=== PATIENT | male | born 1960 | race Asian ===

== ENCOUNTER → 2018-01-30 08:23 | Outpatient (CLI) | payer BC, SELFPAY ==
[2018-01-30 10:24] LABS: Vitamin D,25 Hydroxy 19.5 ng/mL (29.95-100.01)
[2018-01-30 10:27] LABS: Cholesterol 227 mg/dL (200); High Density Lipoprotein 45 mg/dL; Thyroid Stim Hormone (TSH) 2.29 uIU/mL (0.358-3.74); Triglycerides 149 mg/dL; Very Low Density Lipoprotein 30 mg/dL (5-40)
== END ==
PROVIDERS: Family Provider Family Medicine; PCP Family Medicine; Visit Provider Family Medicine
DX: Z00.00 Encounter for general adult medical examination without abnormal findings (principal); M51.37 Other intervertebral disc degeneration, lumbosacral region; E55.9 Vitamin D deficiency, unspecified
CPT/HCPCS: 36415; 80061; 82306; 84443

== ENCOUNTER 2018-03-31 17:00 | Outpatient (RCR) | payer BC, SELFPAY ==
--- NOTE | 2018-02-05 14:07 | HP.PTEVAL_ITS ---
Patient's Visit Information MICHAELA CHAPMAN is a 57 year old M referred to Physical Therapy by Paul Ward with a diagnosis of DDD L/S, snapping hip. Date of Evaluation: 02/05/18 Physical Therapist: Paul Oh, BARBARAT, OC - Visit Plan Frequency: 1x/Week Duration: 4-6 Weeks Plan: weekly x 4-6 for ITB stretch, rollout, hip flexor stretch adn monitor tolerance to Angela based LB ext ex vs. neutral spine. Progress HEP each week and schedule as we go. - Subjective Subjective: L hip pain and down leg. Painful if sits too long. Also feels a little numb. Daily for years adn worsening. Starts in L butt. Used to have low back pain but not lately. Rated at 0-4/10. Feels Ok with tennis adn works out 2x/week with tennis. Feels OK after tennis. 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 Feels like popping in hip when someone lifts my leg. 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 uses this because of leg pain. Been using that for 5 years, standing can also give him pain. Basic ADLS are OK. Hobbies: tennis. - Pain L hip and leg Pain Intensity (Out of 10): 0 Pain Intensity Range: 0, 4 - Objective Pt walks without deficits today and transfers I. LB AROM is stiff in ext and painful with PPU at end range transiently, SB and flexion are full and painfree today. Tender to PA palpation of Lower L/S segments but does not reproduce L lateral leg or butt symptoms. hip AROM and PROm WFL and no snapping today noted. Hip and knee strength at 4+/5 without pain. reflexes 1/3 patella and achilles. Sensation WNL to gross light touch. ITB are maximally tight B, hip flexors min tight. HS and quads are WNL. Repeated ext seems to improve lumbar ext and NE on pain today which is nonexistent. - Goals Goal 1:: Wake up in am without notable back/butt pain. Goal Time Frame: 4-6 Weeks Goal 2:: Patient report a 75% decrease in pain levels of L leg and hip with sitting. Goal Time Frame: 4-6 Weeks Goal 3:: Pt be I in appropriate intermediate designer ex to minimize future problems. Goal Time Frame: 4-6 Weeks - Rehabilitation Potential Physical Therapy Diagnosis: DDD, discal pathology and tight ITB contributing to chronic pain. Rehabilitation Potential: Fair - Anticipated Interventions Patient/Client Instruction: Educate patient on: Condition, Plan of Care For the Purpose of:: To decrease pain Therapeutic Exercise to Include: Flexibilty training, Angela Exercises For the Purpose of:: To decrease pain, To increase ROM, To improve ability of physical actions for home/community/work/leisure Manual Therapy Techniques to Include: Soft tissue mobilization For the Purpose of:: To decrease pain, To increase ROM Thank you for the opportunity to evaluate your patient. For Medicare and Medicare HMO plans, please review the plan of care and approve it. It will need to be FAXED BACK to us at [phone] for Medicare purposes. Please let me know if there are questions or concerns regarding this plan of care. Physician Signature: Date:
--- NOTE | 2018-03-31 17:22 | HP.PTREVAL ---
Paul Ward, It has been my pleasure to treat MICHAELA CHAPMAN over the last 7 visits for DDD L/S, snapping hip. Please see the progress note below for an update on the physical therapy plan of care! Subjective: Not bad. coming back on plane was worse 12/09 and needed ibuprofen for L LB/hip. Was just sitting too much. Hip and LB was good other than that. Did not stretch much while gone. Wants to try adn stretch on own for 3 weeks and f/u one more time. No f/u with doctor scheduled. Objective/Function: Pt has gotten away from stretches and wants to get back to them at home before D/C to ensure doing well. No pain or tenderness today, still very tight in ITB, HS, hip flexors. Plan Plan: f/u three weeks as needed to check progress and D/C or request more visits if needed. Goals Goal 1:: Wake up in am without notable back/butt pain. Goal Time Frame: 4-6 Weeks Goal 2:: Patient report a 75% decrease in pain levels of L leg and hip with sitting. Goal Time Frame: 4-6 Weeks Goal 3:: Pt be I in appropriate alf ex to minimize future problems. Goal Time Frame: 4-6 Weeks Anticipated Interventions Patient/Client Instruction: Educate patient on: Condition, Plan of Care For the Purpose of:: To decrease pain Therapeutic Exercise to Include: Flexibilty training, Angela Exercises For the Purpose of:: To decrease pain, To increase ROM, To improve ability of physical actions for home/community/work/leisure Manual Therapy Techniques to Include: Soft tissue mobilization For the Purpose of:: To decrease pain, To increase ROM Please do not hesitate to contact me at [phone] by phone or if you have questions or concerns regarding this new plan of care! Sincerely, Paul Oh, DPT, OC
--- NOTE | 2018-06-12 13:31 | HP.PT.NRP ---
HP - Discharge Summary (1) - Patient Information MICHAELA CHAPMAN was seen in my office for initial evaluation on 02/05/18. The following Plan of Care was established for this patient: Initial Frequency: 1x/Week Initial Duration: 4-6 Weeks - Anticipated Interventions Patient/Client Instruction: Educate patient on: Condition, Plan of Care For the Purpose of:: To decrease pain Therapeutic Exercise to Include: Flexibilty training, Angela Exercises For the Purpose of:: To decrease pain, To increase ROM, To improve ability of physical actions for home/community/work/leisure Manual Therapy Techniques to Include: Soft tissue mobilization For the Purpose of:: To decrease pain, To increase ROM This patient was last seen in our office 03/31/18. Pertinent comments regarding their Physical therapy will appear below: Pt seen 7 visits POC and was doing well. He was to f/u three weeks later but did not schedule or attend that visit. iw ill discontinue at this time due to nonattendance. At this point I will be discontinuing this patient from physical therapy. I would be happy to see this patient again in the future if found appropriate by the physician. Thank you! Paul Oh, DPT, OCS, CSCS
== END 2018-03-31 19:00 | disposition home or self-care (01) ==
LOC: PT 17:00
PROVIDERS: Family Provider Family Medicine; PCP Family Medicine; Visit Provider Family Medicine
DX: M47.9 Spondylosis, unspecified (principal); M51.36 Other intervertebral disc degeneration, lumbar region; R29.4 Clicking hip
CPT/HCPCS: 97110; 97140; 97162; 97530

== ENCOUNTER 2018-08-18 18:00 | Outpatient (RCR) | payer BC, SELFPAY ==
--- NOTE | 2018-07-20 10:47 | HP.PTEVAL ---
Patient's Visit Information MICHAELA CHAPMAN is a 58 year old M referred to Physical Therapy by Paul Ward MD with a diagnosis of cervicalgia. Date of Evaluation: 07/20/18 Physical Therapist: Paul Oh, DPT, OCS, CSCS - Visit Plan Frequency: 2x /Week Duration: 4-6 Weeks Plan: 2x/week for 4 weeks for. 1. Progression of retraction forces c/s. 2. postural and c/s strength. 3. may do Es adn Mh if not improving adn c/s traction manual - Subjective Findings: Woke up with neck pain and stiffness, was good the night before. This is not improving. Pain is L c/s and scapula area. Has tried massage and stretching L UT which help a little bit. Pain is deep constant. Worse in morning, Worse with sitting. 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 Sleeping is OK on his back. Wakes up stiff. Has not missed work or avoided activity but is very uncomfortable. Some days very uncomfortable and doesn't feel liek doing much. - Pain L neck pain Pain Intensity (Out of 10): 3 Pain Intensity Range: 1, 5 - Objective Posture is forward head and slightly elevated scap. c/s AROM ext 43, B rotation 60 L and 50 R no pain, retraction gives wince, flexion is good. reflexes bi and triceps 2/3. Sensation UE WNL to gross light touch. Strength UE 4+ without myotomal abnormalities. No tenderness in soft tissue adn no pain with any isometric neck contractions in neutral. + c/s compression. Repeated motion testing: protrusion, NE. retraction, NE pain, feels good Improved ext to 60 adn rotations to 65. - Goals Goal 1:: Full c/s AROM without pain Goal Time Frame: 2-4 Weeks Goal 2:: Patient feel 90% improved overall with pain no greater than 1/10 adn intermittent. Goal Time Frame: 2-4 Weeks Goal 3:: I approp management of condition Goal Time Frame: 2-4 Weeks - Rehabilitation Potential Physical Therapy Diagnosis: cervicalgia likely discal in nature Rehabilitation Potential: Fair - Anticipated Interventions Patient/Client Instruction: Educate patient on: Condition, Plan of Care For the Purpose of:: To decrease pain, To increase ROM, To increase tolerance to activity/condition/position Therapeutic Exercise to Include: Strength training, Passive ROM, Active ROM For the Purpose of:: To decrease pain, To increase ROM, To increase tolerance to activity/condition/position, To improve ability of physical actions for home/community/work/leisure Manual Therapy Techniques to Include: Mobilization, Passive ROM Comment: traction For the Purpose of:: To decrease pain TENS: Yes Thermo therapy (hot pack): Yes Intermittent cervical traction: Yes For the Purpose of:: To decrease pain, To increase ROM Thank you for the opportunity to evaluate your patient. For Medicare and Medicare HMO plans, please review the plan of care and approve it. It will need to be FAXED BACK to us at [phone] for Medicare purposes. For Medicare only, by signing this I certify the plan of care. Please let me know if there are questions or concerns regarding this plan of care. Physician Signature: Date:
--- NOTE | 2018-08-06 17:46 | HP.PTREVAL ---
Paul Ward MD, It has been my pleasure to treat MICHAELA CHAPMAN over the last 6 visits for cervicalgia. Please see the progress note below for an update on the physical therapy plan of care! Subjective: Slightly better. Pain this week has been 4/10 intermittently but mostly constant. Better in the morning. Worse as day goes on. No ibuprofen today. Took it the rest of the week. HEP is going well. Treatment has gotten rid of pain today. Not sure what other options are. Objective/Function: 80 extension and 62 B rotation. No tenderness in neck area. Good 4/5 strength in UE, still forward head posture adn tends to protract with UE resisted movements. PROGRESS IS SLOW AND PT TO CALL DOCTOR AND GET ON SCHEUDLE FOR OTHER OPTIONS WHILE WE STRENGTHEN TO FINISH OUT POC. Plan Plan: 2x/week for 2 weeks for. Postural strength and cervical strength. Moniotr c/s ROM. May do manual if tender or stiff to neck PROM/STM Goals Goal 1:: Full c/s AROM without pain Goal Time Frame: 2-4 Weeks Goal Progress: Progressing Goal 2:: Patient feel 90% improved overall with pain no greater than 1/10 adn intermittent. Goal Time Frame: 2-4 Weeks Goal Progress: Progressing Goal 3:: I approp management of condition Goal Time Frame: 2-4 Weeks Goal Progress: Goal Met Anticipated Interventions Patient/Client Instruction: Educate patient on: Condition, Plan of Care For the Purpose of:: To decrease pain, To increase ROM, To increase tolerance to activity/condition/position Therapeutic Exercise to Include: Strength training, Passive ROM, Active ROM For the Purpose of:: To decrease pain, To increase ROM, To increase tolerance to activity/condition/position, To improve ability of physical actions for home/community/work/leisure Manual Therapy Techniques to Include: Mobilization, Passive ROM Comment: traction For the Purpose of:: To decrease pain TENS: Yes Thermo therapy (hot pack): Yes Intermittent cervical traction: Yes For the Purpose of:: To decrease pain, To increase ROM Please do not hesitate to contact me at [phone] by phone or if you have questions or concerns regarding this new plan of care! Sincerely, Paul Oh, DPT, OCS, CSCS
--- NOTE | 2018-08-18 18:29 | HP.PTDCSUM ---
HP - PT D/C Summary It has been my pleasure to treat MICHAELA CHAPMAN under orders from Paul Ward MD, for the diagnosis of cervicalgia for a total of 8 visit(s). Discharge Date: 08/18/18 Please see the following information for a summary of their discharge status. - Subjective Subjective: Up and down pain. For no apparent reason. Will be good one day then 5/10 L c/s. Is getting some tingling down L arm. - Pain L neck pain Pain Intensity (Out of 10): 4 - Overall Improvement % Improvement: 20 - Objective Objective/Function: c/s retraction causes L neck pain trasniently. Rubs L shoulder after doing these. c/s flexion: feels better in shoulder and neck. Full UE AROM without pain. c/s AROM ext to 65 but avoids lower c/s ext, rotations to 60 degrees without increased pain. OVERALL PATIENT IS NOT IMPROVING EXPECTED . HIS SYMPTOMS ARE UP AND DOWN WITHOUT OBVIOUS PATTERN. CLINICALLY COULD BE STENOSIS OR DIS BUT SOFT TISSUE WORK IS NOT HELPING HIM. - Goals Goal 1:: Full c/s AROM without pain Goal Progress: Not Progressing Goal 2:: Patient feel 90% improved overall with pain no greater than 1/10 adn intermittent. Goal Progress: Not Progressing Goal 3:: I approp management of condition Goal Progress: Not Progressing - Plan Plan: Pt to schedule with doctor for further medical care or delineation of problem. Would be happy to see him again if found approp by physician. Would likely need strength posture . - D/C Information Discharge Comments: Pt not progressing satisfactorily and lazcano chedule with doctor regarding next medical step. If there are questions or concerns regarding this patient's physical therapy, please feel free to call me at [phone]. Thank you for the referral of this patient. Sincerely, Paul Oh, DPT, OCS, CSCS
== END 2018-08-18 19:00 | disposition home or self-care (01) ==
LOC: PT 18:00
PROVIDERS: Family Provider Family Medicine; PCP Family Medicine; Referring Provider Family Medicine; Visit Provider Family Medicine
DX: M54.2 Cervicalgia (principal)
CPT/HCPCS: 97012; 97035; 97110; 97140; 97162; 97530

== ENCOUNTER → 2018-08-21 16:59 | Outpatient (CLI) | payer BC, SELFPAY ==
--- NOTE | 2018-08-21 17:07 | RAD_ITS ---
STUDY: X-RAY - CERVICAL SPINE REASON FOR EXAM: Male, 58 years old. PAIN TO NECK AND ARMS, NKI TECHNIQUE: 5 view(s) of the lumbar spine were obtained. COMPARISON: None FINDINGS: Normal cervical lordosis. There is multi-level endplate spondylosis. There is multi-level degenerative disc disease with multilevel disc space narrowing. The soft tissue structures are unremarkable. RAD/Cerv Spine 4 or 5 Views IMPRESSION: Mild degenerative changes of the spine. Electronically Signed: Pelon Katz MD at 9:15 EDT Tel , Service support ,
== END ==
PROVIDERS: Family Provider Family Medicine; PCP Family Medicine; Referring Provider Family Medicine; Visit Provider Family Medicine
DX: M54.2 Cervicalgia (principal)
CPT/HCPCS: 72050

== ENCOUNTER → 2018-08-28 06:35 | Outpatient (CLI) | payer BC, SELFPAY ==
--- NOTE | 2018-08-28 06:49 | MRI_ITS ---
STUDY: MRI CERVICAL SPINE WITHOUT CONTRAST REASON FOR EXAM: Male, 58 years old. Neck pain radiating to left shoulder. TECHNIQUE: Standardized fat and water weighted pulse sequences were obtained in the sagittal and axial planes. COMPARISON: X-ray dated August 21, 2018. FINDINGS: Normal foramen magnum and brainstem-cervical cord junction. Normal craniovertebral junction. Normal anterior atlantoaxial articulation. Normal odontoid process. Cervical straightening. No acute fracture, dislocation or osseous destruction. C2-3: Normal endplates. Normal disc height, signal and morphology. Normal central canal and intervertebral neural foramina. C3-4: Normal endplates. Normal disc height, signal and morphology. Moderate left neural foraminal narrowing. C4-5: Normal endplates. Normal disc height, signal and morphology. Mild left neural femoral narrowing. C5-6: Minimal endplate spondylosis. Disc bulge/osteophyte complex, asymmetric to the right, with mild central canal narrowing. Moderate/severe bilateral neural foraminal narrowing, left greater than right. C6-7: Normal endplates. Shallow disc bulge without central canal narrowing. Mild bilateral neural foraminal narrowing. C7-T1: Normal endplates. Normal disc height, signal and morphology. Normal central canal and intervertebral neural foramina. No abnormal cervical cord signal. Vascular flow voids maintained. Normal soft tissue structures. MRI/Spine Cervical (Routine) IMPRESSION: No abnormal cord signal C5-6, C6-7 intervertebral disc disease with mild central canal narrowing at C5-6 Multilevel neural foraminal narrowing, left greater than right, most significant at C5-6 C5-6 minimal endplate spondylosis Cervical straightening Electronically Signed: Paul James DO at 19:36 EDT Tel , Service support ,
== END ==
PROVIDERS: Family Provider Family Medicine; PCP Family Medicine; Referring Provider Family Medicine; Visit Provider Family Medicine
DX: M50.30 Other cervical disc degeneration, unspecified cervical region (principal); M54.2 Cervicalgia; M25.512 Pain in left shoulder; M79.609 Pain in unspecified limb
CPT/HCPCS: 72141

== ENCOUNTER 2018-10-08 17:00 | Outpatient (RCR) | payer BC, SELFPAY ==
--- NOTE | 2018-09-10 17:50 | HP.PTEVAL_ITS ---
Patient's Visit Information MICHAELA CHAPMAN is a 58 year old M referred to Physical Therapy by Vic Phoenix MD with a diagnosis of DDD c/s. Date of Evaluation: 09/10/18 Physical Therapist: Paul Oh DPT, OCS, CSCS - Visit Plan Frequency: 2-3x /Week Duration: 2-4 Weeks Plan: 2-3x/week for 2-4 weeks for. 1. monitor c/s flexion effects on symptoms and non damagin ROM to c/s. 2. c/s ICT. 3. postural and cervical strength including c/s isometrics to HEP - Subjective Findings: This is a reevaluation of a previously discharged returning patient after MRI results. Had MRI for L sided necka nd scap pain. Pain is 4/10 daily intemrittently. No arm symptoms but does get pain in upper arm shoulder at times. He recently had therapy and was sent back to doctor for this MRI and next step. Activities don't make it worse but he is stiff nearly every morning. Stretches help and he continues those, has stopped retraction and strength. - Pain L UT Pain Intensity (Out of 10): 2 Pain Intensity Range: 0, 5 - Objective 63 B rotation c/s withotu pain, 15 B sB without pain, ext is 45 without pain, No tenderness to touch in B UT or shoulder. reflexes 2/3 bi and tri. Sensation WNL B UE. Strength 4+/5 UE without myotomal abnormalities. repested c/s flexion seems to increase motion and improve retraction with less pain. - Goals Goal 1:: Full C/S arom without pain Goal Time Frame: 2-4 Weeks Goal 2:: Patient feel pain 90% decreased adn manageable Goal Time Frame: 2-4 Weeks Goal 3:: Sleep without waking in morning with pain Goal Time Frame: 2-4 Weeks - Rehabilitation Potential Physical Therapy Diagnosis: C/S DDD Rehabilitation Potential: Questionable - Anticipated Interventions Patient/Client Instruction: Educate patient on: Condition, Plan of Care For the Purpose of:: To decrease pain, To increase ROM, To increase tolerance to activity/condition/position Therapeutic Exercise to Include: Strength training, Postural training, Flexibilty training, Passive ROM, Active ROM For the Purpose of:: To decrease pain, To increase ROM, To increase tolerance to activity/condition/position, To improve ability of physical actions for home/community/work/leisure Intermittent cervical traction: Yes For the Purpose of:: To decrease pain Thank you for the opportunity to evaluate your patient. For Medicare and Medicare HMO plans, please review the plan of care and approve it. It will need to be FAXED BACK to us at [phone] for Medicare purposes. For Medicare only, by signing this I certify the plan of care. Please let me know if there are questions or concerns regarding this plan of care. Physician Signature: Date:
--- NOTE | 2018-10-08 17:26 | HP.PTDCSUM ---
HP - PT D/C Summary It has been my pleasure to treat MICHAELA CHAPMAN under orders from Vic Phoenix MD, for the diagnosis of DDD c/s for a total of 5 visit(s). Discharge Date: 10/08/18 Please see the following information for a summary of their discharge status. - Subjective Subjective: Was sick earier in the week. Neck is more or less good. Not much pain lately. 90% better, gets tightness on L side. Stretching seems to help the most. Traction has helped. Buttock pain is coming back and keeping him up but neck is good. - Pain L UT Pain Intensity (Out of 10): 2 - Overall Improvement % Improvement: 90 - Objective Objective/Function: 75 B rotation c/s without pain, 70 ext . Full UE AROM all without pain and 4+/5 strength. DOING VERY WELL SINCE STARTING C/S FLEXION REPEATED. - Goals Goal 1:: Full C/S arom without pain Goal Progress: Goal Met Goal 2:: Patient feel pain 90% decreased adn manageable Goal Progress: Goal Met Goal 3:: Sleep without waking in morning with pain Goal Progress: MET WITH NECK. - Plan Plan: D/C - D/C Information Discharge Comments: dOING WELL ADN NO F/U WITH DOCTOR. wILL CONTINUE VIA HEP. If there are questions or concerns regarding this patient's physical therapy, please feel free to call me at [phone]. Thank you for the referral of this patient. Sincerely, Paul Oh, DPT, OCS, CSCS
== END 2018-10-08 19:00 | disposition home or self-care (01) ==
LOC: PT 17:00
PROVIDERS: Family Provider Family Medicine; PCP Family Medicine; Referring Provider Family Medicine; Visit Provider Family Medicine
DX: M51.37 Other intervertebral disc degeneration, lumbosacral region (principal); M50.30 Other cervical disc degeneration, unspecified cervical region
CPT/HCPCS: 97012; 97110; 97164; 97530

== ENCOUNTER → 2019-01-29 09:59 | Outpatient (CLI) | payer BC, SELFPAY ==
[2019-01-29 13:01] LABS: Vitamin D,25 Hydroxy 30.2 ng/mL (29.95-100.01)
[2019-01-29 13:06] LABS: Anion Gap 6 (5-15); BUN 17 mg/dL (7-18); BUN/Creat Ratio 12.5 RATIO (10-20); Calcium,Total 8.9 mg/dL (8.5-10.1); Chloride 107 mmol/L (98-107); Cholesterol 233 mg/dL (200); Creatinine, Serum 1.36 mg/dL (0.70-1.30); EST Glomerular Filtration Rate 58 mL/min (>60); Est Glom Filt Rate - Afr Amer 70 mL/min (>60); Glucose 99 mg/dL (74-106); High Density Lipoprotein 48 mg/dL; Potassium 4.1 mmol/L (3.5-5.1); Sodium Level 139 mmol/L (136-145); Triglycerides 147 mg/dL; Very Low Density Lipoprotein 29 mg/dL (5-40)
== END ==
PROVIDERS: Family Provider Family Medicine; PCP Family Medicine; Referring Provider Family Medicine; Visit Provider Family Medicine
DX: Z00.00 Encounter for general adult medical examination without abnormal findings (principal); E55.9 Vitamin D deficiency, unspecified
CPT/HCPCS: 36415; 80048; 80061; 82306

== ENCOUNTER → 2019-02-25 08:04 | Outpatient (CLI) | payer BC, SELFPAY ==
[2019-02-25 10:25] LABS: Anion Gap 4 (5-15); BUN 13 mg/dL (7-18); BUN/Creat Ratio 10.5 RATIO (10-20); Calcium,Total 9.3 mg/dL (8.5-10.1); Chloride 107 mmol/L (98-107); Creatinine, Serum 1.24 mg/dL (0.70-1.30); EST Glomerular Filtration Rate 64 mL/min (>60); Est Glom Filt Rate - Afr Amer 77 mL/min (>60); Glucose 107 mg/dL (74-106); Sodium Level 138 mmol/L (136-145)
== END ==
PROVIDERS: Family Provider Family Medicine; PCP Family Medicine; Referring Provider Family Medicine; Visit Provider Family Medicine
DX: R94.4 Abnormal results of kidney function studies (principal)
CPT/HCPCS: 36415; 80048

== ENCOUNTER → 2019-05-18 09:48 | Outpatient (CLI) | payer BC, SELFPAY ==
--- NOTE | 2019-05-18 09:51 | RAD_ITS ---
STUDY: X-RAY CHEST REASON FOR EXAM: Male, 59 years old. Cough of 2 months TECHNIQUE: PA and lateral views of the chest. COMPARISON: None. FINDINGS: The lungs are clear and expanded. There is no demonstrated pleural abnormality. Normal size heart. Normal mediastinum and marti. Normal visualized pulmonary arteries. Normal visualized aortic arch and descending thoracic aorta. Normal visualized thoracic spine. Normal visualized ribs, clavicles, and shoulders. There is no demonstrated abnormality of the visualized soft tissue structures of the upper abdomen. RAD/Chest PA and Lateral IMPRESSION: Normal x-ray examination of the chest. Electronically Signed: Zane Santos MD ([place]) at 16:51 EST , Service support ,
== END ==
PROVIDERS: Family Provider Family Medicine; PCP Family Medicine; Referring Provider Family Medicine; Visit Provider Family Medicine
DX: R05 Cough (principal)
CPT/HCPCS: 71046

== ENCOUNTER → 2019-06-11 08:54 | Outpatient (CLI) | payer BC, SELFPAY ==
[2019-06-11 10:24] LABS: Absolute Lymphocyte Count 1.36 X10^3/uL (0.83-4.51); Absolute Neutrophil Count 12.5 X10^3/uL (2.0-7.7); Basophil# 0.04 X10^3/uL; Basophil% 0.3 % (0-1); Eosinophil# 0.51 X10^3/uL; Eosinophils% 3.4 % (0-5); Hematocrit 46.1 % (40-54); Hemoglobin 15.2 g/dL (13.0-16.5); Lymphocyte # 1.36 X10^3/ul (4.0); Lymphocyte % 9.1 % (19-41); Mean Corpuscular Hgb 29.5 pg (27.0-32.0); Mean Corpuscular Volume 89.3 fL (80-94); Mean Platelet Vol. 10.1 fl (6.2-12.0); Monocyte# 0.46 X10^3/uL; Monocyte% 3.1 % (0-10); NRBC Flagged by Analyzer 0 % (0-5); Neutrophil # 12.49 X10^3/uL (2.7-7.7); Neutrophil % 83.7 % (47-70); Platelet Count 245 K/mm3 (150-450); RBC Distribution Width CV 11.8 % (11.6-14.6); RBC Distribution Width SD 38.5 fl (35.1-43.9); Red Blood Count 5.16 M/mm3 (4.6-6.2); White Blood Count 14.9 K/mm3 (4.4-11.0)
[2019-06-14 05:06] LABS: Alternaria alternata <0.10 kU/L (Class 0); Aspergillus fumigatus <0.10 kU/L (Class 0); Bahia Grass <0.10 kU/L (Class 0); Bermuda Grass <0.10 kU/L (Class 0); Bluegrass, Kentucky <0.10 kU/L (Class 0); Cat Hair/Dander, Standard <0.10 kU/L (Class 0); Cedar, Mountain <0.10 kU/L (Class 0); Cladosporium herbarum <0.10 kU/L (Class 0); Cockroach, American <0.10 kU/L (Class 0); D farinae Mite <0.10 kU/L (Class 0); D pteronyssinus <0.10 kU/L (Class 0); Dog Epithelia <0.10 kU/L (Class 0); Elm, American White <0.10 kU/L (Class 0); Hazelnut Tree <0.10 kU/L (Class 0); Hickory, White <0.10 kU/L (Class 0); Johnson Grass <0.10 kU/L (Class 0); Maple/Box Elder <0.10 kU/L (Class 0); Mucor racemosus <0.10 kU/L (Class 0); Mugwort <0.10 kU/L (Class 0); Mulberry, White <0.10 kU/L (Class 0); Oak, White <0.10 kU/L (Class 0); Penicillium chrysogen <0.10 kU/L (Class 0); Pigweed, Rough <0.10 kU/L (Class 0); Plantain, English <0.10 kU/L (Class 0); Ragweed, Short/Common <0.10 kU/L (Class 0); Sheep Sorrel(Dock) <0.10 kU/L (Class 0); Stemphylium herbarum <0.10 kU/L (Class 0); Sweet Gum <0.10 kU/L (Class 0); Sycamore, American <0.10 kU/L (Class 0)
[2019-06-15 10:20] LABS: Nettle <0.10 kU/L (Class 0)
== END ==
PROVIDERS: Family Provider Family Medicine; PCP Family Medicine; Referring Provider Family Medicine; Visit Provider Family Medicine
DX: J32.9 Chronic sinusitis, unspecified (principal)
CPT/HCPCS: 36415; 85025; 86003; 86140; 87070; 87205

== ENCOUNTER → 2019-06-22 15:47 | Outpatient (CLI) | payer BC, SELFPAY ==
--- NOTE | 2019-06-22 15:54 | CT_ITS ---
STUDY: CT MAXILLOFACIAL SINUSES REASON FOR EXAM: Male, 59 years old. POST NASAL DRIP RADIATION DOSAGE (If Supplied By Facility): CTDIvol = ( 29.38 ) mGy, DLP = ( 525.42 ) mGycm TECHNIQUE: The patient was scanned in a multi detector CT scanner. High resolution axial imaging was performed without the administration of intravenous contrast material. Sagittal and coronal images were reconstructed. Individualized dose optimization techniques were used for this CT. COMPARISON: None. FINDINGS: FRONTAL SINUSES: Normal aeration, without mucosal inflammatory disease. ETHMOIDAL SINUSES: Normal aeration, without mucosal inflammatory disease. MAXILLARY SINUSES: Normal aeration, without mucosal inflammatory disease. SPHENOIDAL SINUSES: Normal aeration, without mucosal inflammatory disease. There is patency of the bilateral maxillary infundibuli with normal uncinate processes, ethmoid bullae, and hiatus semilunaris. Normal bilateral middle turbinates. Normal bilateral inferior turbinates. Normal midline nasal septum. There is patency of the bilateral nasal airways. The visualized osseous structures are normal. The visualized bilateral orbital contents are normal. CT/Sinus/Facial Bone IMPRESSION: Normal CT examination of the maxillofacial sinuses. Electronically Signed: Kaia Trejo MD at 0:48 EST , Service support ,
--- NOTE | 2019-06-22 15:54 | CT_ITS ---
STUDY: CT CHEST WITH CONTRAST REASON FOR EXAM: Male, 59 years old. Chest pain. GERD. RADIATION DOSAGE (If Supplied By Facility): CTDIvol = ( 12.49 ) mGy, DLP = ( 462.81 ) mGycm TECHNIQUE: Transaxial imaging was performed following intravenous administration of 100 ml of right 300 contrast material. Coronal and sagittal reformatted images were created. Individualized dose optimization techniques were used for this CT. COMPARISON: None FINDINGS: There are no pulmonary infiltrates or pleural effusions. There are subcentimeter calcified granuloma in the right lower lobe. There is no pneumothorax. The heart and pericardium are within normal limits. There is no thoracic lymphadenopathy. There is no evidence of thoracic aortic aneurysm. Images through the upper abdomen demonstrate a small hiatal hernia. There are no destructive osseous lesions. CT/Chest WITH Contrast IMPRESSION: Calcified granulomata in the right lung. Otherwise, clear lungs. Small hiatal hernia. Electronically Signed: Walter Sotomayor, at 19:55 EST Tel , Service support ,
== END ==
PROVIDERS: PCP Family Medicine; Referring Provider Family Medicine; Visit Provider Family Medicine
DX: R09.82 Postnasal drip (principal)
CPT/HCPCS: 70486; 71260; Q9967

== ENCOUNTER → 2019-06-24 10:17 | Outpatient (CLI) | payer BC, SELFPAY ==
[2019-06-24 10:36] LABS: Bacteria 0 SEEN /hpf (None Seen); Mucous, Urine 0 SEEN /hpf (<or=2+); Red Blood Cells-Urine 0 SEEN /hpf (0-5); White Blood Cells 0 SEEN /hpf (0-5)
[2019-06-24 12:22] LABS: Color, Urine Straw (Yellow); Glucose, Dipstick Normal (Normal); Ketone-Dipstick Negative (Negative); Leukocyte Esterase-Dipstick Negative /ul (Negative); Nitrite-Dipstick Negative (Negative); Occult Blood-Urine Negative /ul (Negative); Protein-Dipstick Negative (Negative); Specific Gravity, Urine 1.005 (1.002-1.030); Urine Bilirubin Dipstick Negative (Negative); Urine Clarity Clear (Clear); Urine Urobilinogen Normal (Normal)
[2019-06-24 12:29] LABS: Erythrocyte Sedimentation Rate 15 mm/hr (0-20)
[2019-06-24 12:30] LABS: Absolute Lymphocyte Count 1.58 X10^3/uL (0.83-4.51); Absolute Neutrophil Count 3.8 X10^3/uL (2.0-7.7); Basophil# 0.05 X10^3/uL; Basophil% 0.8 % (0-1); Eosinophil# 0.18 X10^3/uL; Eosinophils% 2.9 % (0-5); Hematocrit 48.4 % (40-54); Hemoglobin 15.4 g/dL (13.0-16.5); Lymphocyte # 1.58 X10^3/ul (4.0); Lymphocyte % 25.2 % (19-41); Mean Corp Hgb Conc 31.8 g/dL (32-36); Mean Corpuscular Hgb 28.3 pg (27.0-32.0); Monocyte# 0.66 X10^3/uL; Monocyte% 10.5 % (0-10); NRBC Flagged by Analyzer 0 % (0-5); Neutrophil # 3.78 X10^3/uL (2.7-7.7); Neutrophil % 60.4 % (47-70); Platelet Count 261 K/mm3 (150-450); Red Blood Count 5.44 M/mm3 (4.6-6.2); Squamous Epithelial Cells - UA 0-5 SEEN /hpf (0-5); White Blood Count 6.3 K/mm3 (4.4-11.0)
[2019-06-24 13:14] LABS: AST(SGOT) 20 U/L (15-37); Alanine Aminotransfer ALT/SGPT 30 U/L (16-61); Albumin, Serum 3.8 g/dL (3.2-5.0); Alkaline Phosphatase 75 U/L (45-117); Anion Gap 6 (5-15); BUN 14 mg/dL (7-18); BUN/Creat Ratio 11.4 RATIO (10-20); CRP < 2.90 mg/L (0.0-3.0); Calcium,Total 9.2 mg/dL (8.5-10.1); Chloride 105 mmol/L (98-107); Creatinine, Serum 1.23 mg/dL (0.70-1.30); EST Glomerular Filtration Rate 64 mL/min (>60); Est Glom Filt Rate - Afr Amer 78 mL/min (>60); Globulin 3.8 g/dL (2.2-4.2); Glucose 111 mg/dL (74-106); Potassium 3.9 mmol/L (3.5-5.1); Protein, Total 7.6 g/dL (6.4-8.2); Sodium Level 136 mmol/L (136-145)
[2019-06-27 10:30] LABS: H. PYLORI STOOL AG Negative (Negative)
[2019-06-28 21:40] LABS: URINE HISTOPLASMA ANTIGEN <0.5
[2019-06-29 09:27] LABS: Anti-Nuclear Antibody Test Negative (.)
== END ==
PROVIDERS: PCP Family Medicine; Referring Provider Family Medicine; Visit Provider Family Medicine
DX: R05 Cough (principal); R12 Heartburn; R79.82 Elevated C-reactive protein (CRP)
CPT/HCPCS: 36415; 80053; 81001; 85025; 85652; 86038; 86140; 87177; 87209; 87385; 87506

== ENCOUNTER → 2019-06-25 | Outpatient (CLI) | payer BC, SELFPAY | END | disposition home or self-care (01) | LOC: LABSPEC 09:42 | PROVIDERS: PCP Family Medicine; Referring Provider Family Medicine; Visit Provider Family Medicine | DX: R05 Cough (principal); R79.82 Elevated C-reactive protein (CRP); R12 Heartburn | CPT/HCPCS: 87177; 87209 ==

== ENCOUNTER → 2019-06-28 17:34 | Outpatient (CLI) | payer BC, SELFPAY | PROVIDERS: PCP Family Medicine; Referring Provider Family Medicine; Visit Provider Family Medicine | DX: R05 Cough (principal); R79.82 Elevated C-reactive protein (CRP); R12 Heartburn | CPT/HCPCS: 87177; 87209 ==

== ENCOUNTER → 2019-07-05 13:58 | Outpatient (CLI) | payer BC, SELFPAY ==
--- NOTE | 2019-07-05 14:01 | CT_ITS ---
STUDY: CT ABDOMEN WITHOUT CONTRAST REASON FOR EXAM: Male, 59 years old. Heartburn RADIATION DOSAGE (If Supplied By Facility): CTDIvol = ( ) mGy, DLP = ( ) mGycm TECHNIQUE: Transaxial images were obtained without intravenous contrast, and oral contrast. Sagittal and coronal images were reconstructed. Individualized dose optimization techniques were used for this CT. COMPARISON: None. FINDINGS: The visualized lung bases are unremarkable. The visualized portions of the heart are within normal limits. Normal liver. Normal gallbladder and extrahepatic biliary system. Normal spleen. Normal pancreas. Normal bilateral adrenal glands. Normal right kidney. Normal left kidney. There is no intestinal obstruction. Normal abdominal aorta. Normal inferior vena cava. Normal retroperitoneum. Normal abdominal wall. Normal osseous structures. CT/Abdomen without IV Contrast IMPRESSION: Normal unenhanced CT of the abdomen. Electronically Signed: Loraine Amaro, at 18:24 EST Tel , Service support ,
== END ==
PROVIDERS: PCP Family Medicine; Referring Provider Family Medicine; Visit Provider Family Medicine
DX: R12 Heartburn (principal)
CPT/HCPCS: 74150

== ENCOUNTER 2019-07-30 07:34 | Day surgery (SDC) | payer BC, SELFPAY ==
--- NOTE | 2019-07-06 01:49 | HP_ITS ---
Intake Vital Signs 07/06/19 Height 5 ft 5 in 07/06/19 Weight: 168 lb 07/06/19 BP 148/89 H 07/06/19 Blood Pressure Location Rt brachial 07/06/19 Position Sitting 07/06/19 Respiration 18 07/06/19 Pulse 85 07/06/19 Pulse Source Monitor 07/06/19 Temp 98.0 F 07/06/19 Temp Source Oral 07/06/19 Pulse Oximetry (%) 95 07/06/19 Oxygen Delivery Method room air Intake Visit Reasons: EGD/STOMACH BIOPSY EVALUATION Chief Complaint: persistent cough and heartburn Ultrasound Applications Specialist Required: No Is patient in pain?: No Allergies No Known Allergies Allergy (Unverified 07/06/19 13:23) Medications calcium carbonate 550 mg-magnesium hydroxide 110 mg chewable tablet 2 tab PO Q6H 07/06/19 [History Confirmed 07/06/19] esomeprazole magnesium 20 mg capsule,delayed release 20 mg PO DAILY 07/06/19 [History Confirmed 07/06/19] PFSH Medical History Epigastric pain (Acute) Persistent cough (Acute) Surgical History (Updated 07/06/19 @ 13:21 by Qian Graves) history excision lump left neck (Acute) Family History (Updated 07/06/19 @ 13:21 by Qian Graves) Mother Hypertension Social History (Updated 07/06/19 @ 13:49 by Zhen Foley MD) Smoking Status: Former smoker alcohol intake: current alcohol intake frequency: a few times a week substance use type: does not use HPI HPI HPI: MICHAELA CHAPMAN, is a 59 M who presents to the office today for HPI HPI Surgical H&P: Yes HPI: MICHAELA CHAPMAN, is a 59 M who presents to the office today for surgical consultation regarding ongoing problems with suspected reflux cough and heartburn and generalized feeling of unwellness. Patient is referred by his primary care physician Dr. Paul Ward and a written copy of my surgical consult recommendations will return to him. The patient states that he was in [facility] April 2000 19 inches felt a little stuffy. By May 2019 he felt like he had some brief head cold symptoms. Then later in May his daughter came home with diagnosed flu and was placed on Tamiflu. The patient states that subsequent to that he became ill with a feeling of unwellness a cough. He claims that he thinks he was given a course of antibiotics at that time because of cough and chilling. He then thinks he had a second course of antibiotics. But during that interval then he started having heartburn and persistent cough. An H. pylori was obtained that was negative. Stool analysis was obtained and that was unremarkable. His white blood cell count was 6.3 with a hemoglobin 15.4 medical at 48.4 platelet count 261,000. Sed rate was 15. BUN is 14 and creatinine 1.23. Liver function test normal except for total bilirubin of 1.1. A abdominal CT was obtained yesterday results are pending. A previous chest CT did show a small hiatal hernia Chart review reveals that February 21, 2014 he had a colonoscopy performed by Dr. López Lopez and that was unremarkable. He has no family history of colon polyps or colon cancer. His weight is been stable. He has been taking some Esomeprazole and Rolaids with some improvement. He denies bright red blood per rectum or melena. 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 Claims he does not have wheat gluten intolerance. ROS General General: No weight change, appetite, fatigue, colon cancer, breast cancer or weakness HEENT HEENT: No difficulty swallowing, eye injury, eye surgery, swollen glands or hoarseness Endo Endocrine: No thyroid disease, diabetes mellitus, thyroid cancer, Hair loss, heat intolerance or cold intolerance Skin Skin: No rash or changing moles Breast Breast: No left breast lump, right breast lump, nipple discharge, breast pain, abnormal mammogram, abnormal US or breast enlargement Musc Musculoskeletal: No back problems, arthritis, rheumatoid arthritis, gout or joint pain Cardio Cardiovascular: No murmur, pacemaker, heart disease, atrial fibrillation, high blood pressure, heart attack, heart stent, palpitations, shortness of breat with exertion or chest pain Psych Psychiatric: No depression, anxiety or hearing voices Resp Respiratory: No shortness of breath, No sleep apnea, Yes cough, No COPD, No asthma, No emphysema, No wheezing Gastro Gastrointestinal: Yes abdominal pain, No nausea or vomiting, No diarrhea, No constipation, No blood in stool, No acid reflux, No hemorrhoids, No ulcers, No gallbladder problem, No black,tarry stools Gerber Hematologic: No blood thinners, No blood disorders, No bleeding, No anemia, No blood clots Neuro Neurologic: No system reviewed and no additional complaints, except as docu, No as per HPI, No abnormal walking, No abnormal hearing, No abnormal movements, No abnormal speech, No behavioral changes, No burning sensations, No confusion, No seizure-like activity, No unsteadiness, No dizziness, No localized weakness, No frequent falls, No headache(s), No lack of coordination, No loss of vision, No memory loss, No numbness, No other visual disturbances, No radiating pain, No restless legs, No sensory deficit, No fainting, No tingling, No tremor(s), No weakness, No other Exam Const General: cooperative, healthy appearing, comfortable, no acute distress Nutritional Appearance: average body habitus Orientation: alert, awake HENMT Head: normal to inspection Chest Chest palpation & inspection: normal inspection of the chest Breast Palpation: No nipple discharge Resp Effort & Inspection: normal respiratory effort Auscultation: clear to auscultation bilaterally Cardio Rate: regular rate Rhythm: regular rhythm Heart Sounds: no murmurs GI Palpation: soft, no hepatosplenomegaly Auscultation: normal bowel sounds Skin General: no rashes or lesions noted Neuro Cognition: normal cognition Extrem General: no calf tenderness bilaterally Psych Affect: normal affect Assessment & Plan Problems 1. Heartburn R12 2. Cough R05 Plan I have discussed with the patient I believe it is reasonable to pursue a esophagogastroduodenoscopy with anticipated biopsies looking for possible celiac disease though less likely looking for H. pylori or signs of symptomatic hiatal hernia reflux or Downing's or even eosinophilic esophagitis. I have discussed the technique, benefit, risk of alternatives. He has had an opportunity to ask and have questions answered. We will schedule and proceed at his discretion CC Dr. Paul Foley M.D., F.A.C.S. Coding Level of Care Code 44325 Diagnoses Heartburn R12 Cough R05 07/06/19 1349 <Electronically signed by Zhen parker MD> Date _ Zhen D Cebul MD I have re-examined the patient. There are no clinical changes since date of exam.
[2019-07-06 13:22] VITALS: BMI 27.9
[2019-07-30] VITALS (10 sets, daily range): BP systolic 106–137; BP diastolic 61–101; PULSE 66–78; RESP 14–16; TEMP 36.1–36.4; O2SAT 93–97; BMI 27.6
[2019-07-30] MEDS: Lactated Ringers 1,000 ML 15 ML IV (07:48)
--- NOTE | 2019-07-30 08:00 | EGD_PTH ---
PATIENT: MICHAELA CHAPMAN V LOC: EN U#:[id number] AGE/SX: 59/M ROOM: RE07/30/[address]: Dr. Zhen Foley MD : 1960 BED: DIS: 07/30/2019 SPEC #: [id number] RECD: 07/30/19 09:19 STATUS: SILKE JUAN #: [id number] KATHRYN: 07/30/19 08:[address]: Zhen Foley DEPT: SURGICAL PATHOLOGY RECD BY: Lula Johnston ENTERED: 07/30/19 11:40 SP TYPE: EGD BIOPSY OT DR: Dr. Paul Ward MD Tissues: A - Duodenum, NOS B - Gastric mucous membrane C - Esophagus, NOS D - Esophagus, NOS Procedures: Surgery Specimen Level IV HEADER OPERATION: EGD (MOD) PRE-OP DIAGNOSIS: Cough, heartburn TISSUE SUBMITTED: A - Duodenum biopsy, B - Antrum biopsy for H. pylori and path, C - Distal esophagus biopsy, D - Mid esophagus biopsy MICROSCOPIC DIAGNOSIS A. Duodenum, biopsy: A fragment of small intestinal mucosa, no pathologic diagnosis. B. Antrum, biopsy: Mild gastritis. See microscopic description and comment. C. Distal esophagus, biopsy: A fragment of squamous epithelium with mild chronic inflammation. D. Mid esophagus, biopsy: A fragment of squamous epithelium with mild congestion. SJ:nahid 08/02/19 COMMENT B. The results of immunohistochemistry for Helicobacter pylori will be reported separately ([id number]). MICROSCOPIC DESCRIPTION Slides are reviewed. B. The specimen shows fragments of gastric mucosa with chronic inflammatory cell infiltrates in the lamina propria consisting of lymphocytes and plasma cells, consistent with mild chronic gastritis. GROSS DESCRIPTION A - Received in fixative is one container labeled with the patient's name and designated duodenum biopsy. The specimen consists of one irregular fragment of light al soft tissue that measures 0.2 x 0.2 x 0.1 cm. The specimen is totally submitted in one cassette. B - Received in fixative is one container labeled with the patient's name and designated antrum biopsy. The specimen consists of one irregular fragment of light al soft tissue that measures 0.4 x 0.2 x 0.1 cm. The specimen is totally submitted in one cassette. C - Received in fixative is one container labeled with the patient's name and designated distal esophagus biopsy. The specimen consists of one irregular fragment of light al soft tissue that measures 0.3 x 0.3 x 0.1 cm. The specimen is totally submitted in one cassette. D - Received in fixative is one container labeled with the patient's name and designated mid esophagus biopsy. The specimen consists of multiple irregular fragments of light al soft tissue that in aggregate measure 0.4 x 0.3 x 0.1 cm. The specimen is totally submitted in one cassette. / SJ:rg 07/30/19 TC:3 CPT: 21155 x2
--- NOTE | 2019-07-30 08:00 | IMM_PTH ---
PATIENT: MICHAELA CHAPMAN V LOC: EN U#:[id number] AGE/SX: 59/M ROOM: RE07/30/[address]: Dr. Zhen Foley MD : 1960 BED: DIS: 07/30/2019 SPEC #: [id number] RECD: 07/30/19 12:50 STATUS: SILKE REVladislav #: [id number] KATHRYN: 07/30/19 08:[address]: Zhen Foley DEPT: IMMUNOHISTOCHEMISTRY RECD BY: Ariane Fleming ENTERED: 07/30/19 12:51 SP TYPE: IMMUNO OTHR DR: Dr. Paul Ward MD Tissues: B - Stomach, NOS Procedures: H Pylori (initial) PHYSICIAN & INSTITUTION [place] [address] SPECIMEN INFORMATION: Tissue Source: B - Antrum biopsy Clinical Info: Cough, heartburn Specimen Number: [id number] CPT code: 67790 METHODOLOGY: Deparaffinized sections of prefer/formalin-fixed tissue or PAP/DQ stained slides are incubated with monoclonal/polyclonal antibodies/oligonucleotide probes. Localization is made via biotin free immunoperoxidase method. Appropriate controls are performed and reacted as expected. Results on target cell population are indicated in the following table: RESULTS: ANTIBODY / CLONE RESULT Block B H Pylori (polyclonal) negative These tests were developed and their performance characteristics determined by [facility]. They may not have been cleared or approved by the U.S. Food and Drug Administration. The FDA has determined that such clearance or approval is not necessary. INTERPRETATION: B. Antrum biopsy: Negative for Helicobacter pylori organisms. SJ:nahid 08/02/19
== END 2019-07-30 09:22 | disposition home or self-care (01) ==
LOC: EN 07:40 → AC 07:49
PROVIDERS: PCP Family Medicine; Referring Provider Family Medicine; Visit Provider Surgery
PROC: (CPT 43239; principal; 2019-07-30 07:55)
DX: K29.70 Gastritis, unspecified, without bleeding (principal); K44.9 Diaphragmatic hernia without obstruction or gangrene; R12 Heartburn; K31.89 Other diseases of stomach and duodenum; R05 Cough; Z87.891 Personal history of nicotine dependence
CPT/HCPCS: 43239; 88305; 88342; 99152; 99153; J7120

== ENCOUNTER → 2020-08-28 17:02 | Outpatient (CLI) | payer BC, SELFPAY ==
[2019-09-30 09:58] VITALS: BMI 28.3
--- NOTE | 2020-08-28 17:04 | RAD_ITS ---
STUDY: X-RAY - RIGHT ELBOW REASON FOR EXAM: Male, 60 years old. Pain R elbow and cannot fully flex arm TECHNIQUE: 3 view(s) of the elbow. COMPARISON: None. FINDINGS: Normal visualized humerus, radius and ulna. Normal radiocapitellar and ulnotrochlear articulations. The soft tissue structures are unremarkable. RAD/Elbow min 3 Views IMPRESSION: Normal x-ray examination of the elbow. Electronically Signed: Gualberto Green MD at 15:35 EDT , Service support ,
== END ==
PROVIDERS: PCP Family Medicine; Referring Provider Family Medicine; Visit Provider Family Medicine
DX: M25.521 Pain in right elbow (principal)
CPT/HCPCS: 73080

== ENCOUNTER 2020-10-11 11:00 | Outpatient (RCR) | payer BC, SELFPAY ==
[2019-09-30 09:58] VITALS: BMI 28.3
--- NOTE | 2020-09-05 13:52 | HP.PTEVAL_ITS ---
Patient's Visit Information BYSAMMY CHAPMAN is a 60 year old M referred to Physical Therapy by Dr. Paul Ward MD with a diagnosis of R medial epicondylitis, UT tendonitis.. Date of Evaluation: 09/05/20 Physical Therapist: Paul Oh, DPT, OCS, CSCS - Visit Plan Frequency: 2x /Week Duration: 4-6 Weeks Plan: 2x/week for 4-6 weeks. 1. US nonthermal to R triceps insertion at elbow, please rollout and stretch tricep and work toward eccentric strength. Needs more R elbow ROM, mobs. 2. L UT STM, DTR and stretch L UT. Progress to painfree strength of both of these as tolerated. Pt is to avoid aggravating activities and use elbow compression sleeve if active. Consider ionto with dex if patient not coming around at 3 weeks despite not being covered by insurance if he wishes. - Subjective R elbow painfor 2 months starting with tennis and golf. Was practicing golf swing in garage. Pain is posterior R elbow. Hurts much of time if active, OK for the most part at rest. Limited R elbow fexiona dn stiff. Won't go all the way straight either. Pain is up to bad if hits the ball wrong way 4/10 , comfortable at rest. Sleep is OK. Still able to play tennis. Golfs once and tennis one time per week to two times per week. Also enjoys running 2x/week and it is ok. 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 Getting dressed can hurt if it is flared up. Stiffness can make it hard to wash face in am. L shoulder UT can hurt at times. Stretching makes it better right away. Not sure why or what started it. Good days and bad days. - Pain R elbow Pain Intensity (Out of 10): 0 Pain Intensity Range: 0, 4 - Objective R elbow. L UT. Posture is forward head slightly and elevated scap. Tender in L UT with slight palpable knot. tender over tric insertion on R mildly. c/s AROM ext 60 adn rotation 70 without pain. scap mobility is good without pain. UE AROM is WFL and symmetrical excet R elbow limited flexion to 55 degrees vs 45 on L adn -7 ext vs full on L. Strength UE is 4/5 with only slight pain in tricep on R. No pain with wrist felxion or ext R. reflexes 2/3 bi and tri B. - lat and medial epi tests on R. - cervical compression test. Walks and transfers normally without pain. - Goals Goal 1:: Full R elbow AROM without pain Goal Time Frame: 4-6 Weeks Goal 2:: Pain in R elbow diminished to 1/10 at worst adn 90% better Goal Time Frame: 4-6 Weeks Goal 3:: L UT not tender or noticeabe to patinet Goal Time Frame: 4-6 Weeks Goal 4:: I management of condition Goal Time Frame: 4-6 Weeks Goal 5:: Tennis without pain Goal Time Frame: 4-6 Weeks - Rehabilitation Potential Physical Therapy Diagnosis: R triceps tendonitis pain and L ut knot. Rehabilitation Potential: Fair - Anticipated Interventions Patient/Client Instruction: Educate patient on: Condition, Plan of Care For the Purpose of:: To decrease pain, To increase ROM, To improve muscle performance and motor function, To increase tolerance to activity/condition/position Therapeutic Exercise to Include: Strength training, Flexibilty training, Passive ROM, Active ROM, Scapular Strength/Stabilization For the Purpose of:: To decrease pain, To increase ROM, To improve muscle performance and motor function, To improve ability of physical actions for home/community/work/leisure Manual Therapy Techniques to Include: Petrissage, Mobilization, Passive ROM, Soft tissue mobilization For the Purpose of:: To increase ROM Ultrasound (thermal/non thermal): Yes - nonthermal R triceps insert For the Purpose of:: To decrease swelling/inflammation, To improve muscle performance and motor function Thank you for the opportunity to evaluate your patient. For Medicare and Medicare HMO plans, please review the plan of care and approve it. It will need to be FAXED BACK to us at [phone] for Medicare purposes. For Medicare only, by signing this I certify the plan of care. Please let me know if there are questions or concerns regarding this plan of care. Physician Signature: Date:
--- NOTE | 2020-09-26 12:58 | HP.PTREVAL ---
Dr. Paul Ward MD, It has been my pleasure to treat MICHAELA CHAPMAN over the last 5 visits for R medial epicondylitis, UT tendonitis.. Please see the progress note below for an update on the physical therapy plan of care! Subjective: R elbow defintiely better. L UT still lingering a little bit. Less pain in elbow, gets rare sharp pain. R elbow is 85, UT is a little better. L UT still hurts to 8/10 and lingers. Objective/Function: Neck ROM is full and without pain except retraction gives slight L T pain. Knot palpable in L lev scap insertion and tender to touch. R tricep doign wella dn far less tender/painful. Near full rOM and strength at 4/5 without pain now in R tricep/. Overall improving and appropriate to cotninue POC. Emphasized attendance in PT. Plan Plan: 2x/week for 5 -6 visits. Pt to manage tricep on his own with stretching and GTB strength. In clinic please treat L UT /lev scap with US thermal to tender area, DTR, stretch UT and lev scap and strengthen to tolerance. Goals Goal 1:: Full R elbow AROM without pain Goal Time Frame: 4-6 Weeks Goal Progress: Progressing Goal 2:: Pain in R elbow diminished to 1/10 at worst adn 90% better Goal Time Frame: 4-6 Weeks Goal Progress: Goal Met Goal 3:: L UT not tender or noticeabe to patinet Goal Time Frame: 4-6 Weeks Goal Progress: Progressing Goal 4:: I management of condition Goal Time Frame: 4-6 Weeks Goal Progress: Progressing Goal 5:: Tennis without pain Goal Time Frame: 4-6 Weeks Goal Progress: Progressing Anticipated Interventions Patient/Client Instruction: Educate patient on: Condition, Plan of Care For the Purpose of:: To decrease pain, To increase ROM, To improve muscle performance and motor function, To increase tolerance to activity/condition/position Therapeutic Exercise to Include: Strength training, Flexibilty training, Passive ROM, Active ROM, Scapular Strength/Stabilization For the Purpose of:: To decrease pain, To increase ROM, To improve muscle performance and motor function, To improve ability of physical actions for home/community/work/leisure Manual Therapy Techniques to Include: Petrissage, Mobilization, Passive ROM, Soft tissue mobilization For the Purpose of:: To increase ROM Ultrasound (thermal/non thermal): Yes - nonthermal R triceps insert For the Purpose of:: To decrease swelling/inflammation, To improve muscle performance and motor function Please do not hesitate to contact me at [phone] by phone or if you have questions or concerns regarding this new plan of care! Sincerely, Paul Oh, DPT, OCS, CSCS
--- NOTE | 2020-10-11 11:28 | HP.PTDCSUM ---
It has been my pleasure to treat MICHAELA CHAPMAN referred by Dr. Paul Ward MD, with the diagnosis of R medial epicondylitis, UT tendonitis. for a total of 9 visit(s). Discharge Date: 10/11/20 Please see the following information for a summary of their discharge status. Subjective: Going out of country tomorrow. Traction was OK. Today is good and yesterday was normal day. A little pain today L UT but not bad. Has been up and down but today is one of the best days. Elbow is OK, played a little tennis the other day. R elbow Pain Intensity (Out of 10): Unrated L uT Pain Intensity (Out of 10): 1 % Improvement: 80 Objective/Function: Ful cervical ROM with only slight L rot L UT pain, otherwise is good. r tricep contract without pain 4+/5 and full elbow ROM. see goals. Goal 1:: Full R elbow AROM without pain Goal Progress: Goal Met Goal 2:: Pain in R elbow diminished to 1/10 at worst adn 90% better Goal Progress: Goal Met Goal 3:: L UT not tender or noticeabe to patinet Goal Progress: Progressing Goal 4:: I management of condition Goal Progress: Goal Met Goal 5:: Tennis without pain Goal Progress: Goal Met Plan: d/c to HEP Discharge Comments: Pt much better adn willc ontinue HEP during 3 [place] dn contact doctor upon return if not continuing to improve. If there are questions or concerns regarding this patient's physical therapy, please feel free to call me at [phone]. Thank you for the referral of this patient. Sincerely, Paul Oh, DPT, OCS, CSCS
== END 2020-10-11 12:00 | disposition home or self-care (01) ==
LOC: PT 11:00
PROVIDERS: PCP Family Medicine; Referring Provider Family Medicine; Visit Provider Family Medicine
DX: M77.01 Medial epicondylitis, right elbow (principal); M77.8 Other enthesopathies, not elsewhere classified
CPT/HCPCS: 97012; 97035; 97110; 97140; 97162; 97530

== ENCOUNTER 2021-07-17 08:12 | Outpatient (CLI) | payer BC, SELFPAY ==
[2021-07-17 10:53] LABS: Anion Gap 2 (5-15); BUN 16 mg/dL (7-18); BUN/Creat Ratio 12.8 RATIO (10-20); Calcium,Total 9.1 mg/dL (8.5-10.1); Chloride 107 mmol/L (98-107); Cholesterol 218 mg/dL (200); Creatinine, Serum 1.25 mg/dL (0.70-1.30); EST Glomerular Filtration Rate 63 mL/min (>60); Est Glom Filt Rate - Afr Amer 76 mL/min (>60); Glucose 104 mg/dL (74-106); High Density Lipoprotein 43 mg/dL; PSA,Total - Annual Screen 0.91 ng/mL (0.00-4.00); Potassium 3.9 mmol/L (3.5-5.1); Sodium Level 137 mmol/L (136-145); Triglycerides 183 mg/dL; Very Low Density Lipoprotein 37 mg/dL (5-40)
== END 2021-07-17 23:59 | disposition home or self-care (01) ==
LOC: MFPLAB 08:16
PROVIDERS: PCP Family Medicine; Referring Provider Family Medicine; Visit Provider Family Medicine
DX: Z12.5 Encounter for screening for malignant neoplasm of prostate (principal)
CPT/HCPCS: 36415; 80048; 80061; 84153; G0103

== ENCOUNTER → 2022-03-05 | Outpatient (CLI) | payer BC, SELFPAY ==
--- NOTE | 2022-03-05 15:45 | RAD_ITS ---
STUDY: X-RAY - PARANASAL SINUSES REASON FOR EXAM: Male, 61 years old. Dizziness. Headache. TECHNIQUE: 3 view(s) of the paranasal sinuses were obtained. COMPARISON: None. FINDINGS: Underdeveloped frontal sinuses. The ethmoid sphenoid and maxillary sinuses are unremarkable. Normal visualized facial bones. The soft tissue structures are unremarkable. RAD/Sinuses min 3 Views IMPRESSION: Normal x-rays of the paranasal sinuses. Electronically Signed: Jordan Mas DO at 16:22 EDT ,
[2022-03-05 15:56] LABS: Lyme Ab Screen Interpretation REF LAB
[2022-03-05 17:50] LABS: Absolute Lymphocyte Count 2.07 X10^3/uL (0.83-4.51); Absolute Neutrophil Count 3.4 X10^3/uL (2.0-7.7); Basophil# 0.05 X10^3/uL; Basophil% 0.8 % (0-1); Eosinophil# 0.38 X10^3/uL; Eosinophils% 5.9 % (0-5); Hematocrit 47.3 % (40-54); Hemoglobin 16.3 g/dL (13.0-16.5); Lymphocyte # 2.07 X10^3/ul (0.83-4.51); Lymphocyte % 32.2 % (19-41); Mean Corp Hgb Conc 34.5 g/dL (32-36); Mean Corpuscular Hgb 30.4 pg (27.0-32.0); Mean Corpuscular Volume 88.2 fL (80-94); Mean Platelet Vol. 10.2 fl (6.2-12.0); Monocyte# 0.53 X10^3/uL; Monocyte% 8.2 % (0-10); NRBC Flagged by Analyzer 0 % (0-5); Neutrophil # 3.39 X10^3/uL (2.7-7.7); Neutrophil % 52.7 % (47-70); Platelet Count 249 K/mm3 (150-450); RBC Distribution Width CV 11.9 % (11.6-14.6); RBC Distribution Width SD 38.3 fl (35.1-43.9); Red Blood Count 5.36 M/mm3 (4.6-6.2); White Blood Count 6.4 K/mm3 (4.4-11.0)
[2022-03-05 19:13] LABS: ALB/GLOB Ratio 1.1 RATIO (0.9-2.4); AST(SGOT) 21 U/L (15-37); Alanine Aminotransfer ALT/SGPT 28 U/L (16-61); Albumin, Serum 4.1 g/dL (3.2-5.0); Alkaline Phosphatase 88 U/L (45-117); Anion Gap 7 (5-15); BUN 20 mg/dL (7-18); BUN/Creat Ratio 15.5 RATIO (10-20); CRP < 2.90 mg/L (0.0-3.0); Calcium,Total 9.2 mg/dL (8.5-10.1); Chloride 104 mmol/L (98-107); Creatinine, Serum 1.29 mg/dL (0.70-1.30); EST Glomerular Filtration Rate 60 mL/min (>60); Est Glom Filt Rate - Afr Amer 73 mL/min (>60); Globulin 3.6 g/dL (2.2-4.2); Glucose 97 mg/dL (74-106); Potassium 3.9 mmol/L (3.5-5.1); Protein, Total 7.7 g/dL (6.4-8.2); Sodium Level 138 mmol/L (136-145)
[2022-03-08 11:45] LABS: Lyme Scn Total Ab w/Rflx Negative (Negative)
== END | disposition home or self-care (01) ==
PROVIDERS: PCP Family Medicine; Referring Provider Family Medicine; Visit Provider Family Medicine
DX: R53.81 Other malaise (principal); R53.83 Other fatigue; R42 Dizziness and giddiness
CPT/HCPCS: 36415; 70220; 80053; 85025; 86140; 86618

== ENCOUNTER 2022-03-26 17:00 | Outpatient (RCR) | payer BC, SELFPAY ==
--- NOTE | 2022-02-06 15:53 | HP.PTEVAL ---
Patient's Visit Information BYSAMMY CHAPMAN is a 61 year old M referred to Physical Therapy by Dr. Paul Ward MD with a diagnosis of c/s DDD, L scap muscle pain. Date of Evaluation: 02/06/22 Physical Therapist: Paul hO, DPT, OCS, CSCS - Visit Plan Frequency: 2x /Week Duration: 4-6 Weeks Plan: 2x/week for 4 weeks for... 1. US to L medial scap tender area, stretch lev scap and UT, retraction and extension based exercises and mobs.DTR as needed. 2. strengthen neck and postural focus. chest stretch. MH as needed. - Subjective Old pain came back in L lower neck to scapula and posterior shoulder. It has come and gone for years. Came back 3 weeks ago. This was while travelling to [facility]. it got much worse. Massage helped. Driving in car made it worse as it was a long drive. It has been up to 6/10 constant now but improving. Taking meds ibuprofen and alleve which helps. Doctor ghave muscle relaxer and sent for PT. Denies numbness or tingling. Pushup s make him worse after 20. Sleep is interrupted as it hurts to prior to bed and then uncomfortable. Wakes him up. Works on computer or Tv right before bed. Suction helps relieve pain temporarily. Playing golf once per week. 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 HEP: No regular stretches or strengthening. Stopped running because of this. Tennis season starts next week. R handed. Basic ADLs are fine. - Pain L shoulder/neck Pain Intensity (Out of 10): 6 Pain Intensity Range: 6 - Objective Forward head posture with protracted scap. Tender to touch in medial L scap at lev scap insertion moderately and into rhomboids and slightly UT. Full UE AROM. cervical rotation L rotation and flexion painful , 55 ext, 45 L rotation and 60 R rotation. _+c/.s compression test. strength UE 4+/5 without myotomal problems. sensation UE WNL to gross light touch. reflexes 1/3 bi and tri. repeated flexion NE in L scap. Repeated ret/ext: NE pain, improved ROM - Balance/Special Test Scores Oswestry Neck Score: 12 - Goals Goal 1:: Sleep without interruption from neck Goal Time Frame: 2-4 Weeks Goal 2:: pain in neck/scap 1/10 at worst and intermittent Goal Time Frame: 2-4 Weeks Goal 3:: Tolerate tennis without increased pain Goal Time Frame: 2-4 Weeks Goal 4:: pt feel 100% back to baseline and I in management of condition Goal Time Frame: 2-4 Weeks Goal 5:: Oswestry score 7 or better Goal Time Frame: 2-4 Weeks - Rehabilitation Potential Physical Therapy Diagnosis: soft tissue L cervical spine discomfort. Rehabilitation Potential: Fair - Anticipated Interventions Patient/Client Instruction: Educate patient on: Condition, Plan of Care For the Purpose of:: To decrease pain, To increase ROM, To improve muscle performance and motor function, To increase tolerance to activity/condition/position Therapeutic Exercise to Include: Strength training, Postural training, Flexibilty training, Passive ROM, Active ROM, Scapular Strength/Stabilization For the Purpose of:: To decrease pain, To increase ROM, To improve muscle performance and motor function, To increase tolerance to activity/condition/position Manual Therapy Techniques to Include: Mobilization, Passive ROM, Soft tissue mobilization For the Purpose of:: To decrease pain, To increase ROM Thermo therapy (hot pack): Yes For the Purpose of:: To decrease pain Thank you for the opportunity to evaluate your patient. For Medicare and Medicare HMO plans, please review the plan of care and approve it. It will need to be FAXED BACK to us at [phone] for Medicare purposes. For Medicare only, by signing this I certify the plan of care. Please let me know if there are questions or concerns regarding this plan of care. Physician Signature: Date:
--- NOTE | 2022-03-26 17:26 | HP.PTDCSUM_ITS ---
It has been my pleasure to treat MICHAELA CHAPMAN referred by Dr. Paul Ward MD, with the diagnosis of c/s DDD, L scap muscle pain for a total of 9 visit(s). Discharge Date: 03/26/22 Please see the following information for a summary of their discharge status. Subjective: neck stiff off to L side. Massage helps for 2-3 hours. Stretching and stengthening getting done at home. L neck hurts this week 09/09. L shoulder/neck Pain Intensity (Out of 10): 4 % Improvement: 60 Objective/Function: Full cervical aROM without increased pain today. pigment furnace tender L lev scap insertion moderately. Seems mostly soft tissue and was improving but stagnant in progress. Not taking meds doctor ordered as he has not picked them up yet. Goal 1:: Sleep without interruption from neck Goal Progress: Goal Met Goal 2:: pain in neck/scap 1/10 at worst and intermittent Goal Progress: Progressing Goal 3:: Tolerate tennis without increased pain Goal Progress: Not Progressing Goal 4:: pt feel 100% back to baseline and I in management of condition Goal Progress: Not Progressing Goal 5:: Oswestry score 7 or better Goal Progress: went backwards. Plan: d/c, pt to schedule with doctor regarding poor progress. We tried a free shockwave treatment and if it is helpful, this should be considered. If no other options, dry needling may be an option for patient also but he is to see doctor first. Discharge Comments: Pt to contact doctor regarding other options. If there are questions or concerns regarding this patient's physical therapy, please feel free to call me at [phone]. Thank you for the referral of this patient. Sincerely, Paul Oh, DPT, OCS, CSCS Balance/Gait/Functional tests - Balance/Special Test Scores Oswestry Neck Score: 8
== END 2022-03-26 19:00 | disposition home or self-care (01) ==
LOC: PT 17:00
PROVIDERS: PCP Family Medicine; Referring Provider Family Medicine; Visit Provider Family Medicine
DX: M50.30 Other cervical disc degeneration, unspecified cervical region (principal)
CPT/HCPCS: 97035; 97110; 97140; 97161; 97164; 97530

== ENCOUNTER → 2022-05-13 | Outpatient (CLI) | payer BC, SELFPAY ==
--- NOTE | 2022-05-13 17:09 | RAD_ITS ---
STUDY: X-RAY - SOFT TISSUE NECK REASON FOR EXAM: Male, 62 years old. Completer x-ray of neck for pain TECHNIQUE: 2 view(s) of the neck were obtained. COMPARISON: None. FINDINGS: Normal visualized nasopharynx, oropharynx, hypopharynx. Normal epiglottis. Normal visualized subglottic tracheal air column. Normal prevertebral soft tissue structures. Loss of the normal cervical lordosis. Moderate degree of disc space narrowing at the C5-C6 level with spondylosis. The soft tissue structures are unremarkable. RAD/Neck for Soft Tissue IMPRESSION: Loss of the normal cervical lordosis. Electronically Signed: Ganesh Christensen MD at 12:58 EST ,
== END | disposition home or self-care (01) ==
LOC: MTRAD 17:08
PROVIDERS: PCP Family Medicine; Visit Provider Family Medicine
DX: M47.9 Spondylosis, unspecified (principal); M54.2 Cervicalgia
CPT/HCPCS: 70360

== ENCOUNTER 2022-06-04 17:30 | Outpatient (RCR) | payer BC, SELFPAY ==
--- NOTE | 2022-05-21 10:49 | HP.PTEVAL_ITS ---
Patient's Visit Information BYSAMMY CHAPMAN is a 62 year old M referred to Physical Therapy by Dr. Woodrow Ivory MD with a diagnosis of cervical DDD. Date of Evaluation: 05/21/22 Physical Therapist: Paul Oh, DPT, OCS, CSCS - Visit Plan Frequency: 2x /Week Duration: 4-6 Weeks Plan: 2x/week for 2-4 weeks for. ICT 20#/10# 30/10 seconds x 15 minutes. Pt is already I with postural and shoulder strength at home from previous therapy and will resume this. Pt has massage gun at home that he is using with 's help, pt is stretching neck at home L UT. Pt says he has home cervical traction seate dunit that he will bring to see if it does what he needs it to. Shockwave last time did not help - Subjective PaIN IN l NECK MOVED DOWN TO l SHOULDER. dR. DODD SENT TO dR. Ivory. 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 Has been using massage gun every day at home. Feels less pain in L neck but more uncomfortable lateral L shoulder. 5/10 intermittent but there most of time and worse int he evening. Same pain a nd symptoms otherwise as last chart. Doctor prescribed meds steroid and took it for 3 days so far. It seems to help. Sleep is OK most of time. Once in a while hard to get to sleep. No activity avoidance at work, hard to focus some days. typing may be worse. Activities are pretty normal . Has stopped band home exercises. Had flu a while back and stopped back then. - Pain L shoulder,neck Pain Intensity (Out of 10): 2 Pain Intensity Range: 1, 5 - Objective Walks and transfers I. Moves well. No visual evidence of pain. cervical AROM 55 extension and 65 B rotations and 16 SB all without pain today. mild + L c/s compression test. Full UE AROM without pain. - alar lig , - VAT. - ext rotation lag test, slight + HK and neer L . sensation UE WNL to gross light touch. reflexes bi and tri 2/3 B. Strength UE 4- without myotomal abnormalities. No pain with ext or IR at shoulders. tender mildly to touch in L UT and over supraspinatus insertion but is also on R. - Balance/Special Test Scores Oswestry Neck Score: 10 - Goals Goal 1:: Pt feel pain in l shouldr, neck 90% improved to 1./10 at worst and intermittent/manageable Goal Time Frame: 2-4 Weeks Goal 2:: Sleep without interruption Goal Time Frame: 2-4 Weeks - Rehabilitation Potential Physical Therapy Diagnosis: cervical DDd vs impingement tendonitis, based on history, appropriate to treat neck Rehabilitation Potential: Good - Anticipated Interventions Patient/Client Instruction: Educate patient on: Condition, Plan of Care For the Purpose of:: To decrease pain, To increase ROM, To improve nutrient delivery to tissue, To improve performance and independence with ADL's Therapeutic Exercise to Include: Strength training, Flexibilty training For the Purpose of:: To decrease pain Intermittent cervical traction: Yes - per order adn POC For the Purpose of:: To decrease pain Thank you for the opportunity to evaluate your patient. For Medicare and Medicare HMO plans, please review the plan of care and approve it. It will need to be FAXED BACK to us at [phone] for Medicare purposes. For Medicare only, by signing this I certify the plan of care. Please let me know if there are questions or concerns regarding this plan of care. Physician Signature: Date:
--- NOTE | 2022-06-04 17:45 | HP.PTDCSUM ---
It has been my pleasure to treat MICHAELA CHAPMAN referred by Dr. Woodrow Ivory MD, with the diagnosis of cervical DDD for a total of 4 visit(s). Discharge Date: 06/04/22 Please see the following information for a summary of their discharge status. Subjective: 2/10 pain much of time, much better than 3 weeks ago. I feel a littel something in L shoulder but gone with massage gun at home. Sleeping OK. Did get back to ex without a problem. No f/u with doctor scheduled. L shoulder,neck Pain Intensity (Out of 10): 2 % Improvement: 90 Objective/Function: Full neck ROM without pain today. Full UE AROM without pain, 4+/5 shoulder flexion strength. Goal 1:: Pt feel pain in l shouldr, neck 90% improved to 1./10 at worst and intermittent/manageable Goal Progress: Progressing Goal 2:: Sleep without interruption Goal Progress: Goal Met Plan: d/c, pt to continue home stretch and strength and gun massage and is getting home traction unit. OTD Discharge Comments: see objective If there are questions or concerns regarding this patient's physical therapy, please feel free to call me at [phone]. Thank you for the referral of this patient. Sincerely, Paul Oh, DPT, OCS, CSCS Balance/Gait/Functional tests - Balance/Special Test Scores Oswestry Neck Score: 10
== END 2022-06-04 19:00 | disposition home or self-care (01) ==
LOC: PT 17:30
PROVIDERS: PCP Family Medicine; Referring Provider Family Medicine; Visit Provider Family Medicine
DX: M50.322 Other cervical disc degeneration at C5-C6 level (principal)
CPT/HCPCS: 97012; 97161

== ENCOUNTER → 2022-06-07 | Outpatient (CLI) | payer BC, SELFPAY ==
[2022-06-07 17:27] LABS: Absolute Lymphocyte Count 1.62 X10^3/uL (0.83-4.51); Absolute Neutrophil Count 3.7 X10^3/uL (2.0-7.7); Basophil# 0.03 X10^3/uL; Basophil% 0.5 % (0-1); Eosinophil# 0.29 X10^3/uL; Eosinophils% 4.6 % (0-5); Hematocrit 45.5 % (40-54); Hemoglobin 15.2 g/dL (13.0-16.5); Lymphocyte # 1.62 X10^3/ul (0.83-4.51); Lymphocyte % 25.9 % (19-41); Mean Corp Hgb Conc 33.4 g/dL (32-36); Mean Corpuscular Hgb 29.3 pg (27.0-32.0); Mean Corpuscular Volume 87.8 fL (80-94); Mean Platelet Vol. 10.6 fl (6.2-12.0); Monocyte# 0.61 X10^3/uL; Monocyte% 9.7 % (0-10); NRBC Flagged by Analyzer 0 % (0-5); Neutrophil # 3.69 X10^3/uL (2.7-7.7); Platelet Count 211 K/mm3 (150-450); RBC Distribution Width CV 12.1 % (11.6-14.6); RBC Distribution Width SD 38.6 fl (35.1-43.9); Red Blood Count 5.18 M/mm3 (4.6-6.2); White Blood Count 6.3 K/mm3 (4.4-11.0)
[2022-06-07 18:22] LABS: ALB/GLOB Ratio 1.2 RATIO (0.9-2.4); AST(SGOT) 14 U/L (15-37); Alanine Aminotransfer ALT/SGPT 29 U/L (16-61); Albumin, Serum 3.7 g/dL (3.2-5.0); Alkaline Phosphatase 70 U/L (45-117); Anion Gap 8 (5-15); BUN 19 mg/dL (7-18); BUN/Creat Ratio 15.7 RATIO (10-20); Calcium,Total 9.2 mg/dL (8.5-10.1); Chloride 104 mmol/L (98-107); Creatinine, Serum 1.21 mg/dL (0.70-1.30); EST Glomerular Filtration Rate 65 mL/min (>60); Est Glom Filt Rate - Afr Amer 79 mL/min (>60); Globulin 3.2 g/dL (2.2-4.2); Glucose 95 mg/dL (74-106); Lipase 192 U/L (73-393); Potassium 4.1 mmol/L (3.5-5.1); Protein, Total 6.9 g/dL (6.4-8.2); Sodium Level 139 mmol/L (136-145)
== END | disposition home or self-care (01) ==
LOC: MFPLAB 15:44
PROVIDERS: PCP Family Medicine; Visit Provider Family Medicine
DX: K26.9 Duodenal ulcer, unspecified as acute or chronic, without hemorrhage or perforation (principal)
CPT/HCPCS: 36415; 80053; 83690; 85025

== ENCOUNTER → 2022-07-12 | Outpatient (CLI) | payer BC, SELFPAY ==
[2022-07-14 15:20] LABS: H. PYLORI STOOL AG Negative (Negative)
[2022-07-16 18:35] LABS: Calprotectin, Stool <16 ug/g (0-120)
== END | disposition home or self-care (01) ==
LOC: LABSPEC 09:22
PROVIDERS: PCP Family Medicine; Referring Provider Family Medicine; Visit Provider Family Medicine
DX: K27.9 Peptic ulcer, site unspecified, unspecified as acute or chronic, without hemorrhage or perforation (principal); R10.13 Epigastric pain
CPT/HCPCS: 83630; 83993; 87177; 87209; 87338

== ENCOUNTER → 2023-07-11 | Outpatient (CLI) | payer BC, SELFPAY ==
--- NOTE | 2023-07-11 15:21 | VDLE_ITS ---
Reason For Study: LLE Pain/ Swelling RIGHT LEFT CFV is compressible, spontaneous, phasic, GSV is normal. competent and demonstrates normal CFV is compressible, spontaneous, phasic, augmentation. competent, and demonstrates normal Procedure augmentation. This is a venous duplex using B-mode, color FV is compressible, spontaneous, phasic, flow and spectral Doppler. competent and demonstrates normal Exam performed in department. augmentation. The exam was diagnostic. POP V is compressible, spontaneous, and A preliminary report was called and/or faxed phasic. to [facility]. T/P Trunk is compressible. PTV is compressible. LT PerV is compressible. Acute deep vein thrombosis is noted in the Gastrocnemius V. It is dilated and NONCOMPRESSIBLE. VL/Venous Duplex US, Unilateral Interpretation Summary Acute deep venous thrombosis left gastrocnemius vein. Patent and compressible left great saphenous vein. Normal flow patterns right common femoral vein Ordering Physician: Paul Ward Referring Physician: Paul Ward Performed By: Ronald Montague RVT
--- OUTSIDE RECORDS SUMMARY | 2023-07-11 16:51 | XMS RPT_ITS | CCD ---
Author Name Unknown Address [address] [place] [address] Organization [facility] Care Team Providers Care Mathematician Name Role Phone Unavailable Primary Care Provider Unavailabl e Medications Completed/Discontinued Medications Medication Drug Class(es) Dates Sig (Normalized) Sig (Original) calcium phosphate dibas/vit D3 (VITAMIN D, WITH CALCIUM, ORAL) (4 sources) calcium phosphat e dibas/vit D3 (VITAMIN D, WITH CALCIUM, ORAL) Take by mouth. 0 Active Problems Active Problems Problem Classification Problem Date Documented Date Episodic/Chronic Disorders of lipid metabolism (4 sources) Dyslipidemia; Translations: [Hyperlipidemia, unspecified] Onset: 11-22-2013 11-22-2013 Chronic Osteoarthritis (1 source) Osteoarthritis of elbow; Translations: [Primary osteoarthritis, right elbow] Chronic Other connective tissue disease (2 sources) Lateral epicondylitis of right humerus; Translations: [Lateral epicondylitis, right elbow] Episodic Other non-traumatic joint disorders (2 sources) Pain in elbow; Translations: [Pain in right elbow] Episodic Past or Other Problems Problem Classification Problem Date Documented Da te Episodic/Chronic Other non-traumatic joint disorders (4 sources) Pain in lower limb; Translations: [Pain in unspecified knee] Onset: 02-25-2014 02-25-2014 Episodic Results Test Name Value Interpretation Reference Range Facil ity Vital Signs Date Time Vital Sign Value Performing Clinician Edui oumou 10-22-2021 14:32-0400 Body height 165.1 cm Cortes Salinas MD Work Phone: [facility] 10-22-2021 14:32-0400 Body weight 72.12 kg Cortes Salinas MD Work Phone: [facility] Encounters Encounter Date Encounter Type Care Provider Facility Start: 11-20-2021 Telephone encounter Bon barber MD Work Phone: Orthopaedics Procedures Date Procedure Procedure Detail Performing Clinician Start: 10-22-2021 Radex elbow 2 views Bra tracy Salinas MD Work Phone: Start: 02-21-2014 Colonoscopy Bon barber MD Work Phone: Plan of Treatment Date Care Activity Detail Author Start: 02-22-2024 Colonoscopy COLONOSCOPY [facility] Start: 02-22-2024 COLORECTAL CANCER SCREENING COLORECTAL CANCER SCREENING [facility] Start: 11-18-2018 LIPID SCREEN LIPID SCREEN [facility] Start: 11-18-2018 PROSTATE CANCER SCRE ENING DISCUSSION PROSTATE CANCER SCREENING DISCUSSION [facility] Start: 11-18-2016 DIABETES SCREEN DIABETES SCREEN [facility] Start: 11-18-2014 FECAL OCCULT BLOOD FECAL OCCULT BLOO D [facility] Start: 2012 SHINGRIX VACCINE (1 of 2) SHINGRIX V ACCINE (1 of 2) [facility] Start: 2007 COLOGUARD (FIT-DNA) COLOGUARD (FIT-D NA) [facility] Start: [address] COLONOGRAPHY [facility] Start: 2007 SIGMOIDOSCOPY SIGMOIDOSCOPY [facility] Start: 1981 Urine microalbumin profile DTAP,TDAP ,TD (1 - Tdap) [facility] Start: 1980 HEPATITIS C SCREENING HEPATITIS C SC REENING [facility] Start: 1980 HIV SCREENING HIV SCREENING [facility] Start: 1974 Adult depression scr ning assessment DEPRESSION SCREENING [facility] Payers Date Payer Category Payer Unknown DIANA BURNS BS FEP PPO [id number] 2013-Present [phone] [address] [place] [address] PPO [id number] Social History Date Type Detail Facility Start: 11-18-2013 Tobacco smoking stat NHIS Ex-smoker [facility] Work Phone: Start: 11-18-2013 Tobacco use and exposure Smokeless tobacco non-user [facility] Work Phone: Start: 10-22-2021 Alcohol intake Current drinke r of alcohol (finding) [facility] Start: 10-22-2021 [facility] Start: 1960 Sex Assigned At Not on file C [facility] Start: 10-12-2021 End: 10-22-2021 Exposure to SARS-CoV-2 (event) Not sure [facility] Work Phone: Clinical Notes 10-22-2021 to 11-20-2021 Telephone Encounter - Flores Fleming RN - 11/20/2021 4:29 PM EDTTelephone Encounter - Adrianne Hawkins PA-C - 11/20/2021 3:41 PM EDPrabhjot Salinas MD - 10/22/2021 2:27 PM EDT Note Date & Type Note Facility 11-20-2021 Miscellaneous Notes Patient notified of provider's instructions. Instructed to take with food and that he may want to take in am to avoid being awake at HS. Pt. verbalizes understanding. I sent an oral steroid to the [facility], please have him follow directions on bottle. Patient calls in regards to R elbow pain. Currently taking meloxicam and states it is helping his pain but not as much as he would like. Patient states at his [facility] on 10/22 Dr. Salinas had mentioned a second medication if meloxicam did not help. Upon review of note, Dr. Salinas suggested that patient could consider cortisone injection in the future if he wanted. Patient does not want injection. Is there another oral medication patient can try? If so send prescription to [facility]. documented in this encounter [facility] 10-22-2021 Note HNO ID: [id number] Author: Bon Salinas MD Service: ? 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 However, he does play tennis regularly and works digging in his garden. He has had right elbow pain x 2 months and has had very little relief from ibuprofen. He has not had injections. 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 There is also some lateral epicondylitis. We reviewed treatment options and he would like to try a different anti-inflammatory for now. May consider cortisone injection of either the joint or the tendon in the future. FOLLOW UP INSTRUCTIONS: As needed Mr. Jimmy Holden was advised as to contrast therapies and/or to take analgesics/anti-inflammatories as needed and all contraindications were reviewed. OBJECTIVE: Mr. Jimmy Holden is a pleasant 61 year old in no apparent distress. Gen:Ht 5' 5 [stated[ (1.65m) Wt 159 lb (72.1kg) BMI 26.46 kg/(m2). nl development, non obese, no deformities ENT: Normocephalic, normal hearing, moist mucosa CV: Pulses:Radial= 2+ and symmetric, capillary refill < 2 secs, no peripheral edema/varicosities Skin: no rash, bruising or lesions. Good turgor. Psych: cooperative and appropriate, alert and oriented x 3, good mood and affect. Musculoskeletal: Almost full range of motion lacking just about 5 degrees or so terminal extension of the elbow. He has joint line tenderness over the posterior lateral corner of the elbow. Some tenderness directly over the lateral epicondyle as well. Pain with resisted elbow, wrist and middle finger extension. Full pronation and supination. IMAGING: IMPRESSION: Small posterior elbow ossification, which could represent sequela of prior trauma or small intra-articular joint body. Operations Liaison: [facility] ? Transcribe Date/Time: Oct 22 2021 ?4:09P Dictated by : NENO CLARK MD This examination was interpreted and the report reviewed and electronically signed by: NENO CLARK MD on Oct 22 2021 ?4:11PM ?EST Results-Findings * * *Final Report* * * DATE OF EXAM: Oct 22 2021 ?2:23PM ? WRX ? [id number] ?- ?XR ELBOW 2V AP/LAT RT ?/ PROCEDURE REASON: Right elbow pain ?? ? * * * * Physician Interpretation * * * * ?EXAMINATION / TECHNIQUE: ?XR ELBOW 2V AP/LAT RT PATIENT/TECHNOLOGIST PROVIDED HISTORY: ? Posterior right elbow pain x several months without injury CLINICAL INFORMATION ( PROVIDED BY ORDERING CLINICIAN) : ?Right elbow pain COMPARISON: None RESULT: No acute fracture or dislocation. Chronic appearing parenchymal shaped ossification along the superior aspect of the olecranon process, which could be related to remote trauma or small intra-articular joint body. Joint spaces are otherwise maintained. No significant joint effusion. Supporting Subjective Information Below: Past Medical History: PAST MEDICAL HISTORY Diagnosis Date - Neck pain - NEGATIVE MEDICAL HISTORY Past Surgical History: PAST SURGICAL HISTORY Procedure Laterality Date - COLONOSCOPY FLX DX W/COLLJ SPEC WHEN PFRMD 02/21/14 Colonoscopy - PAST SURGICAL HISTORY OF cyst removal neck Family History: FAMILY HISTORY Problem Relation Age of Onset - Heart Father [place] age 64 - Hypertension Mother - other (tuberculosis [Other]) Father Social History: Social History Tobacco Use - Smoking status: Former Smoker - Smokeless tobacco: Never Used Substance Use Topics - Alcohol use: Yes Alcohol/week: 4.0 standard drinks Types: 2 Shots of liquor, 2 Cans of Beer (12oz) per week - Drug use: No Medications: Current Outpatient Medications Medication Sig - Cholecalciferol, Vitamin D3, (VITAMIN D-3) 50 mcg (2,000 unit) cap Take 2,000 Units by mouth twice daily. In the winter, takes 4000 international unit(s) twice daily - calcium phosphate dibas/vit D3 (VITAMIN D, WITH CALCIUM, ORAL) Take by mouth. (Patient not taking: Reported on 10/22/2021 ) - ibuprofen (MOTRIN) 800 mg tablet Take 1 tablet by mouth every 8 hours as needed for Pain. Take with food. - cyclobenzaprine (FLEXERIL) 10 mg tablet Take 1 tablet by mouth (more content not included)... [facility] 10-22-2021 Note HNO ID: [id number] Author: RT Niko(R) Service: Radiology Author Type: Technologist Type: Progress Notes Filed: 10/22/2021 2:23 PM Note Text: Radiology Service Progress Note PATIENT NAME: Jimmy Holden DATE OF SERVICE: October 22, 2021 TIME: 2:17 PM PATIENT IDENTITY VERIFICATION COMPLETED USING TWO (2) IDENTIFIERS: Name and Date of confirmed by patient verbally. FALL SCREENING: Has the patient had 2 falls in the last year or 1 fall with injury or currently using an Ambulatory Assistive Device (Walker, Cane, Wheelchair, Crutches, etc.)? 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 However, he does play tennis regularly and works digging in his garden. He has had right elbow pain x 2 months and has had very little relief from ibuprofen. He has not had injections. 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 There is also some lateral epicondylitis. We reviewed treatment options and he would like to try a different anti-inflammatory for now. May consider cortisone injection of either the joint or the tendon in the future. FOLLOW UP INSTRUCTIONS: As needed Mr. Jimmy Holden was advised as to contrast therapies and/or to take analgesics/anti-inflammatories as needed and all contraindications were reviewed. OBJECTIVE: Mr. Jimmy Holden is a pleasant 61 year old in no apparent distress. Gen:Ht 5' 5 [stated[ (1.65m) Wt 159 lb (72.1kg) BMI 26.46 kg/(m^2). nl development, non obese, no deformities ENT: Normocephalic, normal hearing, moist mucosa CV: Pulses:Radial= 2+ and symmetric, capillary refill < 2 secs, no peripheral edema/varicosities Skin: no rash, bruising or lesions. Good turgor. Psych: cooperative and appropriate, alert and oriented x 3, good mood and affect. Musculoskeletal: Almost full range of motion lacking just about 5 degrees or so terminal extension of the elbow. He has joint line tenderness over the posterior lateral corner of the elbow. Some tenderness directly over the lateral epicondyle as well. Pain with resisted elbow, wrist and middle finger extension. Full pronation and supination. IMAGING: IMPRESSION: Small posterior elbow ossification, which could represent sequela of prior trauma or small intra-articular joint body. Operations Liaison: [facility] Transcribe Date/Time: Oct 22 2021 4:09P Dictated by : NENO CLARK MD This examination was interpreted and the report reviewed and electronically signed by: NENO CLARK MD on Oct 22 2021 4:11PM EST Results-Findings * * *Final Report* * * DATE OF EXAM: Oct 22 2021 2:23PM WRX [id number] - XR ELBOW 2V AP/LAT RT / PROCEDURE REASON: Right elbow pain * * * * Physician Interpretation * * * * EXAMINATION / TECHNIQUE: XR ELBOW 2V AP/LAT RT PATIENT/TECHNOLOGIST PROVIDED HISTORY: Posterior right elbow pain x several months without injury CLINICAL INFORMATION ( PROVIDED BY ORDERING CLINICIAN) : Right elbow pain COMPARISON: None RESULT: No acute fracture or dislocation. Chronic appearing parenchymal shaped ossification along the superior aspect of the olecranon process, which could be related to remote trauma or small intra-articular joint body. Joint spaces are otherwise maintained. No significant joint effusion. Supporting Subjective Information Below: Past Medical History: PAST MEDICAL HISTORY Diagnosis Date Neck pain NEGATIVE MEDICAL HISTORY Past Surgical History: PAST SURGICAL HISTORY Procedure Laterality Date COLONOSCOPY FLX DX W/COLLJ SPEC WHEN PFRMD 02/21/14 Colonoscopy PAST SURGICAL HISTORY OF cyst removal neck Family History: FAMILY HISTORY Problem Relation Age of Onset Heart Father [place] age 64 Hypertension Mother other (tuberculosis [Other]) Father Social History: Social History Tobacco Use Smoking status: Former Smoker Smokeless tobacco: Never Used Substance Use Topics Alcohol use: Yes Alcohol/week: 4.0 standard drinks Types: 2 Shots of liquor, 2 Cans of Beer (12oz) per week Drug use: No Medications: Current Outpatient Medications Medication Sig Cholecalciferol, Vitamin D3, (VITAMIN D-3) 50 mcg (2,000 unit) cap Take 2,000 Units by mouth twice daily. In the winter, takes 4000 international unit(s) twice daily calcium phosphate dibas/vit D3 (VITAMIN D, WITH CALCIUM, ORAL) Take by mouth. (Patient not taking: Reported on 10/22/2021 ) ibuprofen (MOTRIN) 800 mg tablet Take 1 tablet by mouth every 8 hours as needed for Pain. Take with food. cyclobenzaprine (FLEXERIL) 10 mg tablet Take 1 tablet by mouth three times daily as needed for Muscle Spasm. (Patient not taking: Reported on 12/13/2017 ) ibuprofen 200 mg tablet Take 200 mg by mouth every 6 hours as needed. multivitamin tablet Take 1 tablet by mouth once daily. No current facility-administered medications for this visit. Allergies: Patient has no known allergies. ROS: General (negative for fatigue, malaise, weight loss/gain) HEENT (negative for headache, earache, recent vision changes, sinus pain, sore throat) Respiratory (no recent shortness of breath, hemoptysis) CV (negative for chest tightness, palpitations) Musculoskeletal (see HPI) Psych (no depression, anxiety) REFERRING PHYSICIAN: Mr. Jimmy Holden was referred to me for consultation by the following physician. This consultation note will be sent to the following physician by either mail or electronic medical record. SELF No primary care provider on file. No primary provider on file. Bon Salinas MD documented in this encounter [facility] 10-22-2021 History of Presen t illness Narrative Radiology Service Progress Note PATIENT NAME: Jimmy Holden DATE OF SERVICE: October 22, 2021 TIME: 2:17 PM PATIENT IDENTITY VERIFICATION COMPLETED USING TWO (2) IDENTIFIERS: Name and Date of confirmed by patient verbally. FALL SCREENING: Has the patient had 2 falls in the last year or 1 fall with injury or currently using an Ambulatory Assistive Device (Walker, Cane, Wheelchair, Crutches, etc.)? No PATIENT GENDER DATA: Male PATIENT RELEVANT IMPLANT DATA REVIEWED: Yes RADIOLOGY DEPARTMENT: General X-ray: Exam(s) Completed: Upper Extremity X-Ray(s): Elbow, right PERIPHERAL IV DATA: Not applicable SIGNED BY: RT Niko(R) October 22, 2021 2:17 PM documented in this encounter [facility] Diagnosis Right elbow pain Pain in joint, upper arm [facility] Diagnosis Osteoarthrosis of right elbow- Primary Lateral epicondylitis of right elbow Lateral epicondylitis of elbow [facility] Diagnosis Lateral epicondylitis of right elbow- Primary Lateral epicondylitis of elbow [facility] Diagnostic Procedure Only (Routine) - Closed Specialty Diagnoses / Procedures Referred By Piotr mitchell Referred To Contact XR IMAGING Diagnoses Right elbow pain Procedures XR ELBOW GENERAL 2V AP/LAT RIGHT RADEX ELBOW 2 VIEWS Bon Salinas MD [address] [place] [address] Xr Imaging Referral ID Status Reason Start Date Expiration Date V isits Requested Visits Authorized [id number] Closed Auto-Generate d Referral 10/22/2021 11/21/2022 1 1 [facility] for referral (narrative)* Diagnostic Procedure Only (Routine) - Closed Specialty Diagnoses / Procedures Referred By Contac t Referred To Contact XR IMAGING Diagnoses Right elbow pain Procedures XR ELBOW GENERAL 2V AP/LAT RIGHT RADEX ELBOW 2 VIEWS Bon Salinas MD [address] [place] [address] Xr Imaging Referral ID Status Reason Start Date Expiration Date V isits Requested Visits Authorized [id number] Closed Auto-Generate d Referral 10/22/2021 11/21/2022 1 1 [facility] for visit Narrative* Diagnostic Procedure Only (Routine) - Closed Specialty Diagnoses / Procedures Referred By Contac t Referred To Contact XR IMAGING Diagnoses Right elbow pain Procedures XR ELBOW GENERAL 2V AP/LAT RIGHT RADEX ELBOW 2 VIEWS Bon Salinas MD [address] [place] [address] Xr Imaging Referral ID Status Reason Start Date Expiration Date V isits Requested Visits Authorized [id number] Closed Auto-Generate d Referral 10/22/2021 11/21/2022 1 1 [facility] Summary Purpose Family History No Family History Records Found Advance Directives No Advanced Directives Records Found Additional Source Comments Source Comments (unrecognize d section and content) In the event this informatio n is protected by the Federal Confidentiality of Alcohol and Drug Abuse Patient Records regulations: The Federal rules restrict any use of the information to criminally investigate or prosecute any alcohol or drug abuse patient.[facility] the event this information is protected by the Federal Confidentiality of Alcohol and Drug Abuse Patient Records regulations: The Federal rules restrict any use of the information to criminally investigate or prosecute any alcohol or drug abuse patient.[facility] the event this information is protected by the Federal Confidentiality of Alcohol and Drug Abuse Patient Records regulations: The Federal rules restrict any use of the information to criminally investigate or prosecute any alcohol or drug abuse patient.[facility] Hospital[facility] the event this information is protected by the Federal Confidentiality of Alcohol and Drug Abuse Patient Records regulations: The Federal rules restrict any use of the information to criminally investigate or prosecute any alcohol or drug abuse patient.[facility] Reason for Visit (unrecogniz ed section and content) Reason Comments Pain (Elbow Pain) (unrecognized sect ion and content) No Status Records Found INFORMATION SOURCE (unrecogn ized section and content) FOR RECORDS PERTAINING TO PATIENTS WHO ARE OR HAVE BEEN ENROLLED IN A CHEMICAL DEPENDENCY/SUBSTANCEABUSE PROGRAM, SOME INFORMATION MAY BE OMITTED. This clinical summary was aggregated from multiple sources. Caution should be exercised in using it in the provision of clinical care. This summary normalizes information from multiple sources, and as a consequence, information in this document may materially change the coding, format and clinical context of patient data. In addition, data may be omitted in some cases. CLINICAL DECISIONS SHOULD BE BASED ON THE PRIMARY CLINICAL RECORDS. [facility] [email or web address]. provides no warranty or guarantee of the accuracy or completeness of information in this document.
== END | disposition home or self-care (01) ==
PROVIDERS: PCP Family Medicine; Referring Provider Family Medicine; Visit Provider Family Medicine
DX: S86.012A Strain of left Achilles tendon, initial encounter (principal)
CPT/HCPCS: 93971

== ENCOUNTER → 2023-07-15 | Outpatient (CLI) | payer BC, SELFPAY ==
--- NOTE | 2023-07-15 06:45 | MRI_ITS ---
STUDY: MRI LEFT ANKLE WITHOUT CONTRAST REASON FOR EXAM: Male, 63 years old. Left acute Achilles pain, partial tear suspected TECHNIQUE: Standardized fat and water weighted pulse sequences were obtained in all 3 orthogonal planes. COMPARISON: None. FINDINGS: There is mild tenosynovitis of the posterior tibialis, flexor digitorum longus, and flexor hallucis longus tendons. Normal peroneus longus and brevis tendons. Normal tibialis anterior tendon. Normal extensor hallucis longus tendon. Normal extensor digitorum longus tendons. There is a full-thickness tear/rupture of the Achilles tendon located 8 cm above its distal insertion, with a 1 cm fluid-filled gap (sagittal STIR series 6 images 8-12). Normal plantar fascia. Normal plantar calcaneal tubercles. Normal intrinsic muscles of the rearfoot. Normal distal tibiofibular syndesmotic ligamentous complex. Normal lateral ligamentous complex. Normal subtalar ligaments and sinus tarsi. Normal deltoid ligamentous complex. Normal plantar calcaneonavicular (spring) ligament. Normal tibiotalar articulation. Normal talar dome. Normal subtalar articulations. Normal talonavicular articulation. Normal calcaneocuboid articulation. Normal navicular-cuneiform articulations. There is subcutaneous soft tissue edema around the ankle and extending along the dorsum of the foot. MRI/Lower Ext Joint Only (Routine) IMPRESSION: Full-thickness tear/rupture of the Achilles tendon located 8 cm above its distal insertion, with a 1 cm fluid-filled gap. Mild tenosynovitis of the posterior tibialis, flexor digitorum longus, and flexor hallucis longus tendons. Subcutaneous soft tissue edema around the ankle and extending along the dorsum of the foot. Electronically Signed: Norman Mckeon MD at 9:42 EST ,
--- OUTSIDE RECORDS SUMMARY | 2023-07-15 06:54 | XMS RPT_ITS | CCD ---
Author Name Unknown Address [address] [place] [address] Organization [facility] Care Team Providers Care Aerotriangulation Specialist Name Role Phone Unavailable Primary Care Provider [...] Date Time Vital Sign Value Performing Clinician Shahla coello 10-22-2021 14:32-0400 Body height 165.1 cm Cortes Salinas MD Work Phone: [facility] 10-22-2021 14:32-0400 Body weight 72.12 kg Cortes Salinas MD Work Phone: [facility] Encounters Encounter Date Encounter Type Care Provider Facility Start: 11-20-2021 Telephone encounter Bon barber MD Work Phone: Orthopaedics Procedures Date Procedure Procedure Detail Performing Clinician Start: 10-22-2021 Radex elbow 2 views Bra tracy Salinas MD Work Phone: Start: 02-21-2014 Colonoscopy Bon barber MD Work Phone: Plan of Treatment Date Care Activity Detail Author Start: 02-22-2024 Colonoscopy [address] [facility] Start: 02-22-2024 COLORECTAL CANCER SCREENING COLORECTAL CANCER SCREENING [facility] Start: 11-18-2018 LIPID SCREEN LIPID SCREEN [facility] Start: 11-18-2018 PROSTATE CANCER SCRE ENING DISCUSSION PROSTATE CANCER SCREENING DISCUSSION [facility] Start: 11-18-2016 DIABETES SCREEN DIABETES SCREEN [facility] Start: 11-18-2014 FECAL OCCULT BLOOD FECAL OCCULT BLOO D [facility] Start: 2012 SHINGRIX VACCINE (1 of 2) SHINGRIX V ACCINE (1 of 2) [facility] Start: 2007 COLOGUARD (FIT-DNA) COLOGUARD (FIT-D NA) [facility] Start: [address] COLONOGRAPHY [facility] Start: 2007 SIGMOIDOSCOPY SIGMOIDOSCOPY [facility] Start: 1981 Urine microalbumin profile DTAP,TDAP ,TD (1 - Tdap) [facility] Start: 1980 HEPATITIS C SCREENING HEPATITIS C SC REENING [facility] Start: 1980 HIV SCREENING HIV SCREENING [facility] Start: 1974 Adult depression scr ning assessment DEPRESSION SCREENING [facility] Payers Date Payer Category Payer Unknown [employer] FEP PPO [id number] 2013-Present [phone] [address] [place] [address] PPO [id number] Social History Date Type Detail Facility Start: 11-18-2013 Tobacco smoking stat NHIS Ex-smoker [facility] Work Phone: Start: 11-18-2013 Tobacco use and exposure Smokeless tobacco non-user [facility] Work Phone: Start: 10-22-2021 Alcohol intake Current drinke r of alcohol (finding) [facility] Start: 10-22-2021 [facility] Start: 1960 Sex Assigned At Not on file [facility] Start: 10-12-2021 End: 10-22-2021 Exposure to SARS-CoV-2 (event) Not sure [facility] Work Phone: Clinical Notes 10-22-2021 to 11-20-2021 [...] I sent an oral steroid to the [facility], please have him follow directions on [...] to [facility]. documented in this encounter [facility] 10-22-2021 Note HNO ID: [id number] Author: Bon Salinas MD Service: ? Author Type: Physician Type: Progress Notes Filed: 11/09/2021 1:56 PM Note Text: Bon Salinas MD Department of Orthopaedics [facility] [address] [place] [address] Dept: [phone] Dept October 22, 2021 CHIEF COMPLAINT: New [...] prior trauma or small intra-articular joint body. Fondant Machine Operator: PSCB ? Transcribe Date/Time: Oct 22 2021 [...] Relation Age of Onset - Heart Father CT age 64 - Hypertension Mother - other [...] tablet by mouth (more content not included)... [facility] 10-22-2021 Note HNO ID: [id number] Author: RT Niko(R) Service: Radiology Author Type: [...] RT Niko(R) October 22, 2021 2:17 PM [facility] 10-22-2021 History of Presen t illness Narrative Bon Salinas MD Department of Orthopaedics Orthopaedics [address] [facility] [address] Dept: [phone] Dept October 22, 2021 CHIEF COMPLAINT: New [...] prior trauma or small intra-articular joint body. Fondant Machine Operator: PSCB Transcribe Date/Time: Oct 22 2021 4:09P [...] Problem Relation Age of Onset Heart Father CT age 64 Hypertension Mother other (tuberculosis [Other]) [...] Bon Salinas MD documented in this encounter [facility] 10-22-2021 History of Presen t illness Narrative [...] 2021 2:17 PM documented in this encounter [facility] documented in [facility] Diagnosis Right elbow pain Pain in joint, upper arm documented [facility] Diagnosis Osteoarthrosis of right elbow- Primary Lateral epicondylitis of right elbow Lateral epicondylitis of elbow documented [facility] Diagnosis Lateral epicondylitis of right elbow- Primary Lateral epicondylitis of elbow documented [facility] Diagnostic Procedure Only (Routine) - Closed Specialty Diagnoses / Procedures Referred By Piotr mitchell Referred To Contact XR IMAGING Diagnoses Right elbow pain Procedures XR ELBOW GENERAL 2V AP/LAT RIGHT RADEX ELBOW 2 VIEWS Bon Salinas MD [address] [place] [address] Xr Imaging Referral ID Status Reason Start Date Expiration Date V isits Requested Visits Authorized [id number] Closed Auto-Generate d Referral 10/22/2021 11/21/2022 1 1 [facility] for referral (narrative)* Diagnostic Procedure Only (Routine) - Closed Specialty Diagnoses / Procedures Referred By Contac t Referred To Contact XR IMAGING Diagnoses Right elbow pain Procedures XR ELBOW GENERAL 2V AP/LAT RIGHT RADEX ELBOW 2 VIEWS Bon Salinas MD [address] [place] [address] Xr Imaging Referral ID Status Reason Start Date Expiration Date V isits Requested Visits Authorized [id number] Closed Auto-Generate d Referral 10/22/2021 11/21/2022 1 1 [facility] for visit Narrative* Diagnostic Procedure Only (Routine) - Closed Specialty Diagnoses / Procedures Referred By Contac t Referred To Contact XR IMAGING Diagnoses Right elbow pain Procedures XR ELBOW GENERAL 2V AP/LAT RIGHT RADEX ELBOW 2 VIEWS Bon Salinas MD [address] [place] [address] Xr Imaging Referral ID Status Reason Start Date Expiration Date V isits Requested Visits Authorized [id number] Closed Auto-Generate d Referral 10/22/2021 11/21/2022 [address] [facility] Summary Purpose Family History No Family History [...] or prosecute any alcohol or drug abuse patient.[facility] the event this information is protected by the Federal Confidentiality of Alcohol and Drug Abuse Patient Records regulations: The Federal rules restrict any use of the information to criminally investigate or prosecute any alcohol or drug abuse patient.[facility] the event this information is protected by the Federal Confidentiality of Alcohol and Drug Abuse Patient Records regulations: The Federal rules restrict any use of the information to criminally investigate or prosecute any alcohol or drug abuse patient.[facility] Center[facility] the event this information is protected by the Federal Confidentiality of Alcohol and Drug Abuse Patient Records regulations: The Federal rules restrict any use of the information to criminally investigate or prosecute any alcohol or drug abuse patient.[facility] Reason for Visit (unrecogniz ed section and [...] BE BASED ON THE PRIMARY CLINICAL RECORDS. [facility] [employer] [facility]. provides no warranty or guarantee of the accuracy or completeness of information in this document.
== END | disposition home or self-care (01) ==
PROVIDERS: PCP Family Medicine; Referring Provider Family Medicine; Visit Provider Family Medicine
DX: S86.012A Strain of left Achilles tendon, initial encounter (principal)
CPT/HCPCS: 73721

== ENCOUNTER 2024-01-20 17:30 | Outpatient (RCR) | payer BC, SELFPAY ==
--- NOTE | 2023-09-08 07:58 | HP.PTEVAL_ITS ---
Patient's Visit Information Visit Information Visit Information: MICHAELA CHAPMAN is a 63 year old M referred to Physical Therapy by Dr. Fidel Alejo MD with a diagnosis of L achilles tendon tear s/p repair 07/30/23. Date of Evaluation: 09/08/23 Physical Therapist: Paul Oh, DPT, OCS, CSCS Visit Plan Frequency: 2x /Week Duration: 2 Months Plan: 2x/week as abkle around travel schedule for 6 weeks to start Pt is WBAT in shoe but weaning out of boot. is not to push DF past neutral [id number] will notify when) ROM and strength progression and gait training and weaning back to funciton, proprioception. Next session should check gait after [place] trip and start ankle stabs, progress strength and ROM as tolerated. Scar massage Subjective Subjective: Tore L achilles tendon playing tennis, That was over 2 months. Surgery to repair 07/30/23. Surgery went Ok as best he can tell. Has boot since surgery but off sometimes at home. Pain level is not bad, Walking too long will make it worse. HEP does some ROM to ankle but otherwise is resting, massage a little bit. Had crutches for first two weeks NWB then crutches PWB with boot. Sleep is not too bad. 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 Needs to get out infield. Supposed to be in boot until tomorrow. travelling to [place], [place] and [facility] in the coming weeks. Pain L achilles: Pain Intensity (Out of 10): 0 Pain Intensity Range: 0 and 2 Objective Objective: Walking into PT in boot walking with L foot pointed out I. donned and doffed boot I. Walks without boot hesitantly with toes pointed Fw but avoids push off and any movement to L ankle. I in both situations. SLS L 1-2 seconds adn R 10+ sec. AROM L ankle -4 Df to 40 PF and 18 inv and 8 eversion. PROM to -2 DF. R ankle 2 DF to 55 PF, 24 inv and 12 eversion. reflexes 2/3 patella dn achilles B Sensation WNL to gross lgiht touch. Incision is healed well with moderate scar tissue onpost achilles scar L side. strength is 3+ inv and ev, 4- DF and 3 PF on L, 4+ on R side in all movements. Balance/Special Test Scores Lower Extremity Functional Score: 38 Goals Goal 1:: 0 DF easily in l ankle to aid in walking Goal Time Frame: 4-6 Weeks Goal 2:: walk without antalgia without gait deviations and no boot needed Goal 3:: normal reciprocal steps Goal Time Frame: 4-6 Weeks Goal 4:: Pt feel ankle 90% back to normal Goal Time Frame: 4-6 Weeks Goal 5:: Plan to resume golf Goal Time Frame: 6-8 Weeks Goal 6:: LEFS score 55 Goal Time Frame: 6-8 Weeks Rehabilitation Potential Physical Therapy Diagnosis: limited ROM and strength and funciton due to repair Rehabilitation Potential: Fair Anticipated Interventions Patient/Client Instruction: Educate patient on: Condition, Plan of Care and Risk Factors For the Purpose of:: To decrease pain, To increase ROM, To improve nutrient delivery to tissue, To improve muscle performance and motor function, To increase tolerance to activity/condition/position and To improve gait and locomotor functions Therapeutic Exercise to Include: Strength training, Balance training, Flexibilty training, Gait and locomotor training, Passive ROM and Active ROM For the Purpose of:: To decrease pain, To increase ROM, To improve nutrient delivery to tissue, To improve muscle performance and motor function, To improve ability to perform ADL's, To increase tolerance to activity/condition/position, To improve ability of physical actions for home/community/work/leisure and To improve gait and locomotor functions Manual Therapy Techniques to Include: Scar massage, Passive ROM and Soft tissue mobilization For the Purpose of:: To decrease pain, To increase ROM, To improve nutrient delivery to tissue, To improve muscle performance and motor function, To increase tolerance to activity/condition/position, To improve ability of physical actions for home/community/work/leisure and To improve gait and locomotor functions Cryotherapy (ice pack, ice massage): Yes For the Purpose of:: To decrease swelling/inflammation Text: Thank you for the opportunity to evaluate your patient. For Medicare and Medicare HMO plans, please review the plan of care and approve it. It will need to be FAXED BACK to us at [phone] for Medicare purposes. For Medicare only, by signing this I certify the plan of care. Please let me know if there are questions or concerns regarding this plan of care. Physician Signature: Date:
--- NOTE | 2023-11-06 16:01 | HP.PTREVAL ---
Re-Evaluation Intro: Dr. Fidel Alejo MD, It has been my pleasure to treat MICHAELA CHAPMAN over the last 6 visits for L achilles tendon tear s/p repair 07/30/23. Please see the progress note below for an update on the physical therapy plan of care! Subjective Subjective: Pt. reports overall doing great. He said he saw physician who removed all restrictions, but to avoid activities at cause increased swelling for more than a day. He is to follow up with physician in ~2 months. Pt. reports minimal pain. He has tried golfing using a cart with good tolerance, slight soreness towards the end of the round. Pt. reports being compliant with his HEP x1 daily. Objective Objective/Function: ROM: L ankle: DF 12deg, PF 37deg, INV 18deg, EVR 16deg. MMT: L ankle: DF 37.1#, PF 18.7#, INV 17.5#, EVR 14.4#. R ankle: DF 39.4#, PF 34.9#, INV 22.3#, EVR 19.3#. Pt. can do a bilateral heel raises, slightly less ROM on L side. He is unable to complete a SL heel raise on L side, able to on R side. GAIT: Pt. ambulates with slight limp, appears to be due to decreased calf strength. pt. reports no pain with gait. STAIRS: pt. has early heel off with loading LLE during descending. Plan Plan Plan: Pt. to be seen x1 per week for 4 weeks. Work on progressive calf strengthening, stick rolling to G/S and achilles, SL strengthening progression as tolerated. Add in hip/quad strengthening as well. Balance/Gait/Functional tests Balance/Special Test Scores Lower Extremity Functional Score: 44 Goals Goals Goal 1:: 0 DF easily in l ankle to aid in walking (new goal 11/06/23)- patient have 15 deg of DF allowing for full gait mechanics and good stair negotiation. Goal Time Frame: 4-6 Weeks Goal Progress: Progressing Goal 2:: walk without antalgia without gait deviations and no boot needed Goal Progress: Progressing Goal 3:: normal reciprocal steps Goal Time Frame: 4-6 Weeks Goal Progress: Progressing Goal 4:: Pt feel ankle 90% back to normal Goal Time Frame: 4-6 Weeks Goal Progress: Progressing Goal 5:: Plan to resume golf Goal Time Frame: 6-8 Weeks Goal Progress: Progressing Goal 6:: LEFS score 55 Goal Time Frame: 6-8 Weeks Goal Progress: Progressing Anticipated Interventions Anticipated Interventions Patient/Client Instruction: Educate patient on: Condition, Plan of Care and Risk Factors For the Purpose of:: To decrease pain, To increase ROM, To improve nutrient delivery to tissue, To improve muscle performance and motor function, To increase tolerance to activity/condition/position and To improve gait and locomotor functions Therapeutic Exercise to Include: Strength training, Balance training, Flexibilty training, Gait and locomotor training, Passive ROM and Active ROM For the Purpose of:: To decrease pain, To increase ROM, To improve nutrient delivery to tissue, To improve muscle performance and motor function, To improve ability to perform ADL's, To increase tolerance to activity/condition/position, To improve ability of physical actions for home/community/work/leisure and To improve gait and locomotor functions Manual Therapy Techniques to Include: Scar massage, Passive ROM and Soft tissue mobilization For the Purpose of:: To decrease pain, To increase ROM, To improve nutrient delivery to tissue, To improve muscle performance and motor function, To increase tolerance to activity/condition/position, To improve ability of physical actions for home/community/work/leisure and To improve gait and locomotor functions Cryotherapy (ice pack, ice massage): Yes For the Purpose of:: To decrease swelling/inflammation Re-Evaluation Ending Re-evaluation ending: Please do not hesitate to contact me at [phone] by phone or if you have questions or concerns regarding this new plan of care! Sincerely, Andrea Gallegos DPT
--- NOTE | 2024-01-20 17:43 | HP.PTDCSUM ---
Discharge Summary D/C summary: It has been my pleasure to treat MICHAELA CHAPMAN referred by Dr. Fidel Alejo MD, with the diagnosis of L achilles tendon tear s/p repair 07/30/23 for a total of 11 visit(s). Discharge Date: 01/20/24 Please see the following information for a summary of their discharge status. Subjective Subjective: Saw doctor last week and can start any exercises. No more f/u necessary. Doing better with walking. L Big toe can have some tingling in it and L heel slightly numb and tingly. Those have been there since surgery. Pain L achilles: Pain Intensity (Out of 10): 0 Overall Improvement % Improvement: 85 Objective Objective/Function: Full aROM ankle with 10 degrees DF. 102# dynomometer PF strength on L. Able to single leg heel raise, not as confident as L but defintiely improving. jogging today 30 feet wihtout deficits, slow but no antalgia and good pushoff. Goals Goal 1:: 0 DF easily in l ankle to aid in walking (new goal 11/06/23)- patient have 15 deg of DF allowing for full gait mechanics and good stair negotiation. Goal Progress: Goal Met Goal 2:: walk without antalgia without gait deviations and no boot needed Goal Progress: Goal Met Goal 3:: normal reciprocal steps Goal Progress: Goal Met Goal 4:: Pt feel ankle 90% back to normal Goal Progress: 85 Goal 5:: Plan to resume golf Goal Progress: Goal Met Goal 6:: LEFS score 55 Goal Progress: Goal Met Plan Plan: d/c to HEP D/C Information d/c sentence: If there are questions or concerns regarding this patient's physical therapy, please feel free to call me at [phone]. Thank you for the referral of this patient. Sincerely, Paul Oh, DPT, OCS, CSCS Balance/Gait/Functional tests Balance/Special Test Scores Lower Extremity Functional Score: 66 Improvement % Improvement: 85
== END 2024-01-20 19:00 | disposition home or self-care (01) ==
LOC: PT 17:30
PROVIDERS: PCP Family Medicine
DX: S86.012D Strain of left Achilles tendon, subsequent encounter (principal)
CPT/HCPCS: 97110; 97140; 97161; 97530

== ENCOUNTER → 2024-05-21 | Outpatient (CLI) | payer BC, SELFPAY ==
[2024-05-21 10:26] LABS: Absolute Lymphocyte Count 1.74 X10^3/uL (0.83-4.51); Absolute Neutrophil Count 1.9 X10^3/uL (2.0-7.7); Basophil# 0.03 X10^3/uL; Basophil% 0.7 % (0-1); Eosinophil# 0.41 X10^3/uL; Hematocrit 48.6 % (40-54); Hemoglobin 15.7 g/dL (13.0-16.5); Lymphocyte # 1.74 X10^3/ul (0.83-4.51); Lymphocyte % 38.3 % (19-41); Mean Corp Hgb Conc 32.3 g/dL (32-36); Mean Corpuscular Hgb 28.5 pg (27.0-32.0); Mean Corpuscular Volume 88.2 fL (80-94); Mean Platelet Vol. 10.1 fl (6.2-12.0); Monocyte# 0.43 X10^3/uL; Monocyte% 9.5 % (0-10); NRBC Flagged by Analyzer 0 % (0-5); Neutrophil # 1.92 X10^3/uL (2.7-7.7); Neutrophil % 42.3 % (47-70); Platelet Count 257 K/mm3 (150-450); RBC Distribution Width CV 11.9 % (11.6-14.6); RBC Distribution Width SD 38.6 fl (35.1-43.9); Red Blood Count 5.51 M/mm3 (4.6-6.2); White Blood Count 4.5 K/mm3 (4.4-11.0)
[2024-05-21 10:50] LABS: Vitamin B12 646 pg/mL (211-911)
[2024-05-21 11:09] LABS: Cholesterol 251 mg/dL (200); High Density Lipoprotein 47 mg/dL; Triglycerides 147 mg/dL; Very Low Density Lipoprotein 29 mg/dL (5-40)
[2024-05-24 12:07] LABS: ANTINUCLEAR ANTIBODIES DIRECT Negative (Negative)
[2024-05-25 12:02] LABS: T4 Free Direct 1.04 ng/dL (0.76-1.46)
== END | disposition home or self-care (01) ==
LOC: MFPLAB 08:19
PROVIDERS: PCP Family Medicine; Referring Provider Family Medicine; Visit Provider Family Medicine
DX: Z13.220 Encounter for screening for lipoid disorders (principal); R20.2 Paresthesia of skin; Z12.5 Encounter for screening for malignant neoplasm of prostate
CPT/HCPCS: 36415; 80061; 82607; 82746; 84153; 84439; 84443; 85025; 86038; G0103

== ENCOUNTER 2024-06-04 13:00 | Outpatient (RCR) | payer BC, SELFPAY ==
--- NOTE | 2024-05-13 15:43 | HP.PTEVAL_ITS ---
Patient's Visit Information Visit Information Visit Information: MICHAELA CHAPMAN is a 64 year old M referred to Physical Therapy by Dr. Paul Ward MD with a diagnosis of R buttock pain. Date of Evaluation: 05/13/24 Physical Therapist: Paul Oh, DPT, OCS, CSCS Visit Plan Frequency: 2x /Week Duration: 4-6 Weeks Plan: 2x/week for 4-6 for... 1. MH and STM to R HS mid subsatnce adn upper half 2. HS R stretch, CR stretch adn eccentric strength to HEP LB ROM and core strength IE HEP: supine HS stretch 30 5x 2x/day and avoid excessive sitting. Subjective Subjective: R buttock pain which started about two months ago. First noted driving to [place] and pushing the accelerator. Not improving, maybe worsening. Pain to 5/10 with pushing accelerator, gone at rest, Also notices it playing golf with twisting. . Sitting is fine. Sleeping is fine. acitivites are pretty normal. He avoids swinging at golf ball alot as he has practice cage in garage. Driving long distance is the worst. Regualr ex: no, walking 20 mintues /day and that is not a problem. Pt wants to focus ont his pain today vs others. Tennis is fine 1x/week Pain R buttock: Pain Intensity (Out of 10): 0 Pain Intensity Range: 0 and 5 Objective Objective: Walks normal, trasnfers I bed and chair. cervical AROM WFL and without pain. LB AROM WFL adn without pain but standing flexion give4s HS stretch R which causes his pain. Max tenderness in R HS mid upper substance not present on L. MMT HS painful R , not L but strong 4+/5, quads 4+/5, hip ext and abd 3+/5 no pain. reflexes 2/3 patella and achilles Sensation LE WNL to gross light touch in B LE - SLR and - Slump, stretching R HS hurts though. R HS -10 90/90 vs -3 on L. Balance/Special Test Scores Oswestry Low Back Score: 1 Goals Goal 1:: HS buttock pain R abolished with sitting Goal Time Frame: 4-6 Weeks Goal 2:: Pt feel 90% better in R buttock pain and manageable Goal Time Frame: 4-6 Weeks Goal 3:: I appropriate HEP to limit future problems. Goal Time Frame: 4-6 Weeks Goal 4:: standing flexion without pain Goal Time Frame: 4-6 Weeks Rehabilitation Potential Physical Therapy Diagnosis: HS pain R limiting sitting ability time Rehabilitation Potential: Good Anticipated Interventions Patient/Client Instruction: Educate patient on: Condition and Plan of Care For the Purpose of:: To decrease pain, To increase ROM and To improve muscle performance and motor function Therapeutic Exercise to Include: Strength training, Postural training, Flexibilty training, Passive ROM and Active ROM For the Purpose of:: To decrease pain, To increase ROM, To improve nutrient delivery to tissue and To improve muscle performance and motor function Manual Therapy Techniques to Include: Mobilization, Passive ROM and Soft tissue mobilization For the Purpose of:: To decrease pain, To increase ROM, To improve nutrient delivery to tissue, To improve muscle performance and motor function and To increase tolerance to activity/condition/position Thermo therapy (hot pack): Yes For the Purpose of:: To decrease pain, To increase ROM and To improve nutrient delivery to tissue Text: Thank you for the opportunity to evaluate your patient. For Medicare and Medicare HMO plans, please review the plan of care and approve it. It will need to be FAXED BACK to us at [phone] for Medicare purposes. For Medicare only, by signing this I certify the plan of care. Please let me know if there are questions or concerns regarding this plan of care. Physician Signature: _Date:
--- NOTE | 2024-08-03 13:57 | HP.PT.NRP ---
Patient Information Patient Information: MICHAELA CHAPMAN was seen in my office for initial evaluation on 05/13/24. The following Plan of Care was established for this patient: POC Established Initial Frequency: 2x /Week Initial Duration: 4-6 Weeks Anticipated Interventions Patient/Client Instruction: Educate patient on: Condition and Plan of Care For the Purpose of:: To decrease pain, To increase ROM and To improve muscle performance and motor function Therapeutic Exercise to Include: Strength training, Postural training, Flexibilty training, Passive ROM and Active ROM For the Purpose of:: To decrease pain, To increase ROM, To improve nutrient delivery to tissue and To improve muscle performance and motor function Manual Therapy Techniques to Include: Mobilization, Passive ROM and Soft tissue mobilization For the Purpose of:: To decrease pain, To increase ROM, To improve nutrient delivery to tissue, To improve muscle performance and motor function and To increase tolerance to activity/condition/position Thermo therapy (hot pack): Yes For the Purpose of:: To decrease pain, To increase ROM and To improve nutrient delivery to tissue Last Seen Last Seen: This patient was last seen in our office 06/04/24. Pertinent comments regarding their Physical therapy will appear below: Pt seen 5 visits of POC but then no showed for his last visit after his vacation. At this point, it has been over 6 weeks and I will discontinue due to nonattendance. At this point I will be discontinuing this patient from physical therapy. I would be happy to see this patient again in the future if found appropriate by the physician. Thank you! Paul Oh, DPT, OCS, CSCS Balance/Gait/Functional tests Balance/Special Test Scores Oswestry Low Back Score: 1
== END 2024-06-04 19:00 | disposition home or self-care (01) ==
LOC: PT 13:00
PROVIDERS: PCP Family Medicine; Referring Provider Family Medicine; Visit Provider Family Medicine
DX: M54.50 Low back pain, unspecified (principal); G89.29 Other chronic pain; M79.672 Pain in left foot
CPT/HCPCS: 97035; 97110; 97161

== ENCOUNTER 2024-08-30 07:05 | Day surgery (SDC) | payer BC, SELFPAY ==
[2024-08-30] VITALS (7 sets, daily range): BP systolic 110–120; BP diastolic 79–85; PULSE 57–68; RESP 14–16; TEMP 35.9–36.9; O2SAT 97–99; BMI 25.8
--- NOTE | 2024-08-30 07:23 | PCM.PRE.AN2 ---
ASA Classification* ASA Classification ASA Classification: 2 Assessment & Plan Anesthesia* Anesthesia Assessment Anesthesia Assessment: Discussed sedation and/or anesthesia options, risks, benefits, and alternatives with patient/parents/legal guardian/POA. Questions invited. The patient/parents/legal guardian/POA seems to understand and agrees to proceed with anesthesia plan. Reviewed the physical assessment, medical history, allergy history and patient home medications list prior to surgery/procedure/anesthetic and documented any changes. Performed airway and anesthesia risk assessments. Anesthesia Type Anesthesia Type: MAC Anesthesia Focused Assessment* Airway Assessment Mouth opens: >3 cm Mallampati Score: II Focused Labs Anesthesia Preop lab: CBC WBC 4.5 K/mm3 (4.4-11.0) 05/21/24 08:19 05/21/24 RBC 5.51 M/mm3 (4.6-6.2) 05/21/24 08:19 05/21/24 Hgb 15.7 g/dL (13.0-16.5) 05/21/24 08:19 05/21/24 Hct 48.6 % (40-54) 05/21/24 08:19 05/21/24 Plt Count 257 K/mm3 (150-450) 05/21/24 08:19 05/21/24 CHEMISTRY Potassium 4.1 mmol/L (3.5-5.1) 06/07/22 15:45 06/07/22 Sodium 139 mmol/L (136-145) 06/07/22 15:45 06/07/22 BUN 19 mg/dL (7-18) H 06/07/22 15:45 06/07/22 Creatinine 1.21 mg/dL (0.70-1.30) 06/07/22 15:45 06/07/22 Glucose 95 mg/dL (74-106) 06/07/22 15:45 06/07/22 TSH 4.000 uIU/mL (0.358-3.740) H 05/21/24 08:19 05/21/24 COAG Pre-Assessment Diagnosis/Proposed Procedure Planned Operative Procedure(s): Colonoscopy - Open Access Anesthesia History 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 When Was Last Pacemaker Check QUESTION #4 FULL TEXT: You/Your Family Experience fever (hyperthermia) with Anesthesia Last Oral Intake Last Oral intake: Last Oral Intake NPO since Meds taken in AM with sips of water? Meds patient instructed to take am of surgery PONV PONV - powder cutting operator: PONV - powder cutting operator Female No 08/25/24 13:26 HX of Motion Sickness No 08/25/24 13:26 HX of N/V After Surgery No 08/25/24 13:26 Non-Smoker Yes 08/25/24 13:26 Duration of Surgery greater No 08/25/24 13:26 than 60 minutes Number of Risk Factors 1 08/25/24 13:26 PONV Score Low Risk 08/25/24 13:26 Height & Weight Height & Weight: Anesthesia: Height & Weight Height 5 ft 5 in 06/21/24 08:50 Respiratory Assessment Respiratory Assessment - powder cutting operator: Respiratory Tract Infection Hx - powder cutting operator Hx Respiratory Tract Infection No 08/25/24 13:26 STOP Sleep Apnea STOP Sleep Apnea - powder cutting operator: STOP Sleep Apnea - powder cutting operator Hx Hypertension No 08/25/24 13:26 Hx Sleep Apnea No 08/25/24 13:26 CPAP No 08/25/24 13:26 BIPAP Do you snore loudly (louder No 08/25/24 13:26 than talking or can be heard Do you often feel tired/ No 08/25/24 13:26 fatigued/ sleepy during daytime? Has anyone observed you stop No 08/25/24 13:26 breathing during sleep? STOP Results Negative 08/25/24 13:26 QUESTION #5 FULL TEXT : Do you snore loudly (louder than talking or can be heard through closed doors)? 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 Specify any problems Hx of Preganancy in last 3 N/A 08/25/24 13:26 Months Nurse Filling Out Transfusion VCHRISTIN 08/25/24 13:26 & Questions: Date: 08/25/24 08/25/24 13: Time: 08/25/24 13:26 Patient unable to answer at this time (ie. 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: /Reproductive Hx- powder cutting operator Hx Now Gestational Age (in weeks): EDC: Hx Hx Para Hx Section SAB PFSH Medical History Wears glasses Alcohol use High cholesterol DVT (deep venous thrombosis) Gastric reflux Former smoker Shortness of breath on exertion Cough Heartburn Persistent cough Epigastric pain Home Medications ?Medication ?Instructions ?Recorded ?Last Taken ?Type Vitamin D3 4,000 mg PO DAILY 07/30/19 Unknown History multivitamin-ferrous 1 ea PO DAILY 07/30/19 Unknown History fumarate-folic acid 18 mg-400 mcg tablet ascorbic acid (vitamin C) 500 mg 500 mg PO DAILY 08/31/19 Unknown History capsule magnesium oxide 400 mg PO QDAY 06/21/24 Unknown History Allergy/AdvReac Type Severity Reaction Status Date / Time No Known Allergies Allergy Verified 08/30/24 07:19 Family History Mother Hypertension Surgical History Hx of Achilles tendon repair Hx of colonoscopy history excision lump left neck Social History household members: spouse current occupational status: employed Smoking Status: Former smoker Tobacco: How many years used: 20 alcohol intake: current alcohol intake frequency: a few times a week substance use type: does not use Review of Systems (Anesthesia) ROS Narrative System reviewed and no additional complaints, except as documented.
--- NOTE | 2024-08-30 07:34 | H&P.OPEN ---
[facility] - General General Date of Service: 08/30/24 [facility] Narrative MICHAELA CHAPMAN, is a 64 M who presents for screening colonoscopy. Patient last colonoscopy was in [address] Lopez negative per patient. Patient has bowel moods daily denies any blood. Patient denies any chronic abdominal pain/nausea/vomiting. Patient does have occasional reflux which he does go on medication for short-term currently he is not on any reflux medications and denies having any symptoms. Patient denies any family history of colon cancer. [facility] Medical History Wears glasses Alcohol use High cholesterol DVT (deep venous thrombosis) Gastric reflux Former smoker Shortness of breath on exertion Cough Heartburn Persistent cough Epigastric pain Home Medications ?Medication ?Instructions ?Recorded ?Last Taken ?Type Vitamin D3 4,000 mg PO DAILY 07/30/19 Unknown History multivitamin-ferrous 1 ea PO DAILY 07/30/19 Unknown History fumarate-folic acid 18 mg-400 mcg tablet ascorbic acid (vitamin C) 500 mg 500 mg PO DAILY 08/31/19 Unknown History capsule magnesium oxide 400 mg PO QDAY 06/21/24 Unknown History Allergy/AdvReac Type Severity Reaction Status Date / Time No Known Allergies Allergy Verified 08/30/24 07:19 Family History Mother Hypertension Surgical History Hx of Achilles tendon repair Hx of colonoscopy history excision lump left neck Social History household members: spouse current occupational status: employed Smoking Status: Former smoker Tobacco: How many years used: 20 alcohol intake: current alcohol intake frequency: a few times a week substance use type: does not use Past Medical/Surgical History Planned Operation Planned Operative Procedure(s): Colonoscopy - Open Access Previous Hospitalizations/Surgeries HX Hospitalizations: No Any Problems With Anesthesia: No You/Your Family Experience Fever (Hyperthermia) With Anes: No Cholinesterase deficiency: No Cardiovascular Hx Hypertension: No Respiratory Hx Sleep Apnea: No CPAP: No Hx Respiratory Tract Infection/Cold (presently): No Do You Snore Loudly (louder than talking or can be heard): No Do You Often Feel Tired/ Fatigued/ Sleepy Beck Daytime?: No Has Anyone Observed You Stop Breathing During Sleep?: No Result (for STOP score): Negative Smoking Status: Former smoker Neurological Does patient have nerve stimulator: No Miscellaneous Recent Exposure to Contagious Disease: No Allergies No Known Allergies Allergy (Verified 08/30/24 07:19) Discharge Is Pt Admitted From a Longterm, or a Prison: No After D/C, Where Do you Plan to Go: Return Home Vital Signs Vital Signs Vital Signs: 08/30/24 07:20 08/30/24 07:20 Temperature 97.0 F L Temperature Source Temporal Pulse Rate 68 Respiratory Rate 16 Respiratory Pattern Normal Blood Pressure 110/79 Blood Pressure Mean 89 Blood Pressure Source Monitor Blood Pressure Position Semi-Fowlers Blood Pressure Location Left Arm Pulse Ox 97 Oxygen Delivery Method Room Air Weight Weight: 155 lb 6.814 oz Body Mass Index (BMI) 25.8 Physical Exam Const alert, oriented x3 and no apparent distress HEENT normocephalic and head/scalp atraumatic Resp normal respiratory effort Cardio regular rate GI soft to palpation and non-tender; Negative for non-distended Palpation: Negative for guarding Extremity no clubbing, cyanosis or edema Skin no rashes or lesions noted Neuro CN's II-XII intact bilaterally Psych mental status grossly normal Assessment & Plan Assessment/Plan (1) Encounter for screening for malignant neoplasm of colon: Surgery Risks - Colonoscopy I discussed with the patient the risks of the procedure: Yes Risks Include but are not Limited To: Risks include but are not limited to: Bleeding, perforation requiring further surgery, inability to complete colonoscopy requiring barium enema.
--- NOTE | 2024-08-30 08:00 | COLBX_PTH ---
PATIENT: MICHAELA CHAPMAN V LOC: EN U#:[id number] AGE/SX: 64/M ROOM: RE08/30/[address]: Dr. Yumiko Lorenzo MD : 1960 BED: DIS: 08/30/2024 SPEC #: [id number] RECD: 08/30/24 13:35 STATUS: SILKE REQ #: [id number] KATHRYN: 08/30/24 08:[address]: Yumiko Lorenzo DEPT: SURGICAL PATHOLOGY RECD BY: Melquiades Moses ENTERED: 08/30/24 13:36 SP TYPE: COLON BX OT DR: Dr. Paul Ward MD Tissues: A - Transverse colon Procedures: Surgery Specimen Level IV HEADER OPERATION: Colonoscopy with biopsy PRE-OP DIAGNOSIS: Encounter for screening for malignant neoplasm of colon TISSUE SUBMITTED: A- Transverse polyp biopsy MICROSCOPIC DIAGNOSIS A. Transverse Colon, Polyp, Biopsy: * Tubular adenoma. MICROSCOPIC DESCRIPTION Slides are reviewed. GROSS DESCRIPTION A. Received in formalin in a container labeled with the patient's name, date of , and transverse polyp biopsy are 2 al-pink fragments of mucosal tissue, each measuring 0.3 x 0.2 x 0.2 cm. Entirely submitted in A1. [facility] 08-30-2024 CPT:60495
--- NOTE | 2024-08-30 09:06 | OP.CCLET_ITS ---
08/30/2024 Paul Ward [address] [place] [address] Re : Colonoscopy procedure for Janette Holden Dear Dr. Ward This procedure was performed on Friday, August 30, 2024. My impressions and recommendations are as follows: Impressions : - One less than 5 mm polyp in the transverse colon, removed with a cold biopsy forceps. Resected and retrieved. - The examination was otherwise normal on direct and retroflexion views. Recommendations : - Discharge patient to home. - Resume previous diet. - Continue present medications. - Await pathology results. - Repeat colonoscopy in 5 years for surveillance based on pathology results. My findings are described in the full procedure note, which is enclosed. If I can be of further assistance, please feel free to contact me at Doctor phone number(s): , Work: . Sincerely, MD Yumiko Moran MD 08/30/2024 9:05:23 AM This report has been signed electronically.
--- NOTE | 2024-08-30 09:06 | OP.COLON_ITS ---
Patient Name: Janette Holden Procedure Date: 08/30/2024 8:27 AM Date of : 1960 Age: 64 Procedure: Colonoscopy Indications: Screening for colorectal malignant neoplasm Providers: Yumiko Lorenzo MD Referring MD: Yumiko Lorenzo MD Medicines: Monitored Anesthesia Care Patient Profile: This is a 64 year old male. Last Colonoscopy: 2013. Complications: No immediate complications. Procedure: Pre-Anesthesia Assessment: - Prior to the procedure, a History and Physical was performed, and patient medications and allergies were reviewed. The patient's tolerance of previous anesthesia was also reviewed. The risks and benefits of the procedure and the sedation options and risks were discussed with the patient. All questions were answered, and informed consent was obtained. Prior Anticoagulants: The patient has taken no anticoagulant or antiplatelet agents. ASA Grade Assessment: Per anesthesia. After reviewing the risks and benefits, the patient was deemed in satisfactory condition to undergo the procedure. After I obtained informed consent, the scope was passed under direct vision. Throughout the procedure, the patient's blood pressure, pulse, and oxygen saturations were monitored continuously. The colonoscope was introduced through the anus and advanced to the cecum, identified by the appendiceal orifice, ileocecal valve and palpation. The colonoscopy was performed without difficulty. The patient tolerated the procedure well. The quality of the bowel preparation was good. Scope In: 8:34:10 AM Scope Withdrawal Time 0 hours 16 minutes 15 seconds Scope Out: 8:58:49 AM Total Procedure Duration Time 0 hours 24 minutes 39 seconds Findings: The perianal and digital rectal examinations were normal. A less than 5 mm polyp was found in the transverse colon. The polyp was semi-sessile. Polypectomy was attempted, initially using a hot snare. Polyp resection was incomplete with this device. This intervention then required a different device and polypectomy technique. The polyp was removed with a cold biopsy forceps. Resection and retrieval were complete. The exam was otherwise without abnormality on direct and retroflexion views. Impression: - One less than 5 mm polyp in the transverse colon, removed with a cold biopsy forceps. Resected and retrieved. - The examination was otherwise normal on direct and retroflexion views. Recommendation: - Discharge patient to home. - Resume previous diet. - Continue present medications. - Await pathology results. - Repeat colonoscopy in 5 years for surveillance based on pathology results. Procedure Code(s): --- Professional --- 14612, PT, Colonoscopy, flexible; with biopsy, single or multiple Diagnosis Code(s): --- Professional --- Z12.11, Encounter for screening for malignant neoplasm of colon D12.3, Benign neoplasm of transverse colon (hepatic flexure or splenic flexure) CPT copyright 2021 [employer]. All rights reserved. The codes documented in this report are preliminary and upon veterinary technologist review may be revised to meet current compliance requirements. MD Yumiko Moran MD 08/30/2024 9:05:23 AM This report has been signed electronically. Number of Addenda: 0 Note Initiated On: 08/30/2024 8:27 AM
--- NOTE | 2024-08-30 09:07 | PCM.POST.ANE ---
Anesthesia: Postop Eval I Current Vital Signs Temperature: 97 F Pulse Rate: 59 Blood Pressure: 116/81 Respiratory Rate: 16 Pulse Ox: 99 Oxygen Delivery Method: Room Air Assessment Airway patent: Yes Spontaneous unlabored respirations: Yes Mental status: Asleep nausea: No Vomiting: No Anesthesia Complication: No Fluid Hydration Crystalloid volume administer (ml): 50 Total IV fluid infused: 50 Progress Note Anesthesia document: Postop Eval 1 completed: Yes
--- NOTE | 2024-08-30 09:14 | PCM.POSTANE2 ---
Anesthesia Postop Eval I Sum Postop Eval Completion status Anesthesia document: Postop Eval 1 completed: Yes Anesthesia Postop Eval I Summary Anesthesia Postop Eval I Summary: Anesthesia Postop Eval I: Assessment Summary Airway patent Yes 08/30/24 09:07 [email or web address] Spontaneous unlabored Yes 08/30/24 09:07 [email or web address] respirations Mental status Asleep 08/30/24 09:07 [email or web address] nausea No 08/30/24 09:07 [email or web address] Vomiting No 08/30/24 09:07 [email or web address] Anesthesia Postop Eval I: Fluid Summary Crystalloid volume administer 50 08/30/24 09:07 [email or web address] (ml) Colloids volume administered ( ml) Blood Product volume administered (ml) Total IV fluid infused 50 08/30/24 09:07 [email or web address] Anesthesia Postop Eval I: Summary Notes Anesthesia Complication No 08/30/24 09:07 [email or web address] Anesthesia Complication Comment: Post-operative progress note Anesthesia: Postop Eval II Evaluation Mental status: Awake Pain Level: 0 nausea: No Vomiting: No
== END 2024-08-30 09:39 | disposition home or self-care (01) ==
LOC: EN 07:06 → AC 07:09
PROVIDERS: PCP Family Medicine; Referring Provider Surgery; Visit Provider Surgery
PROC: 0DJD8ZZ Inspection of Lower Intestinal Tract, Via Natural or Artificial Opening Endoscopic (ICD-10-PCS; CPT 45378; principal; 2024-08-30 07:55)
DX: Z12.11 Encounter for screening for malignant neoplasm of colon (principal); Z87.891 Personal history of nicotine dependence; E78.00 Pure hypercholesterolemia, unspecified; Z86.718 Personal history of other venous thrombosis and embolism; K21.9 Gastro-esophageal reflux disease without esophagitis; D12.3 Benign neoplasm of transverse colon
CPT/HCPCS: 45380; 88305; A4216; J2405

== ENCOUNTER → 2024-12-02 | Outpatient (CLI) | payer BC, SELFPAY ==
[2024-12-02 13:26] LABS: AST(SGOT) 26 U/L (<=37); Alanine Aminotransfer ALT/SGPT 26 U/L (<=46); Albumin, Serum 4.5 g/dL (3.4-4.8); Alkaline Phosphatase 81 U/L (40-129); Anion Gap 10 (5-15); BUN 16 mg/dL (4-19); BUN/Creat Ratio 15.1 RATIO (10-20); Calcium,Total 9.5 mg/dL (7.6-11.0); Carbon Dioxide 27.4 mmol/L (21.0-32.0); Chloride 103 mmol/L (98-108); Globulin 2.7 g/dL (2.2-4.2); Glucose 90 mg/dL (70-99); Potassium 4.1 mmol/L (3.3-5.1)
[2024-12-02 14:22] LABS: Cholesterol 223 mg/dL (<=200); Low Density Lipoprotein Calc. 155 mg/dL; Triglycerides 99 mg/dL; Very Low Density Lipoprotein 20 mg/dL (5-40); cholesterol:hdl ratio screen 4.61
== END | disposition home or self-care (01) ==
LOC: MFPLAB 09:39
PROVIDERS: PCP Family Medicine; Referring Provider Family Medicine; Visit Provider Family Medicine
DX: E78.5 Hyperlipidemia, unspecified (principal)
CPT/HCPCS: 36415; 80053; 80061

== ENCOUNTER 2024-12-06 15:55 | Outpatient (RCR) | payer BC, SELFPAY ==
--- NOTE | 2024-12-07 11:24 | HP.PTEVAL_ITS ---
Patient's Visit Information Visit Information Visit Information: MICHAELA CHAPMAN is a 64 year old M referred to Physical Therapy by Dr. Paul Ward MD with a diagnosis of CERVICALGIA, L shoulder pain. Date of Evaluation: 12/06/24 Physical Therapist: Andrea Gallegos DPT Visit Plan Frequency: 2x /Week Duration: 6 Weeks Plan: L UT and levator scap. DN to same region. Once symptoms have reduced add in mid trap strengthening and lower cervical. Subjective Subjective: Pt. is here today for his initial evaluation with diagnosis of cervicalgia and L shoulder pain. Pt. reports having pain for ~1month. Pt. will having some mild N/T in his L shoulder at times. Pt. reports going to [employer] for a trip and while he was there he saw a physician whom did an injection. Not much change. Pt. reports no mech of injury and no noticeable pattern that causes or relieves symptoms. pt. is sleeping okay without much increase in symptoms. No SALCEDO noted. Pt. is hopeful to reduce symptoms in order to complete all work and recreational activities without limitations. Pain Cervical spine: Pain Intensity (Out of 10): 0 Pain Intensity Range: 0 and 1 L shoulder: Pain Intensity (Out of 10): 1 Pain Intensity Range: 0 and 1 Objective Objective: POSTURE: Pt. has fairly normal posture, slight rounded shoulders, but able to self correct. PALPATION: Pt. has tenderness at L UT and L levator scapulae. No pain with B cervical erector spinae. NEURO: Normal sensation and DTR of BUEs. ROM: Cervical spine: flexion min loss NE, ext min/nil loss NE, rotation L min loss tightness noted. rotation R nil loss NE. MMT: Pt. has full strength throughout BUEs. No myotomal weakness noted. - spurlings bilaterally, - VBI, - distraction test. Pt. is point tender at L UT and L levator scap. Balance/Special Test Scores Oswestry Neck Score: 4 Goals Goal 1:: LTG: Pt. to be I with HEP. Goal Time Frame: 2-4 Weeks Goal 2:: LTG: Pt. to be able to complete full cervical ROM without increase in symptoms. Goal Time Frame: 2-4 Weeks Goal 3:: LTG: Pt. to complete all work activities without increase in L sided neck/scapular pain. Goal Time Frame: 2-4 Weeks Goal 4:: LTG: Pt. to demonstrate proper posture throughout therapy session. Goal Time Frame: 2-4 Weeks Rehabilitation Potential Physical Therapy Diagnosis: Pt. has signs and symptoms consistent with cervicalgia and L shoulder pain. Pt. has marked tenderness at L UT and L levator scap. He also has some cervical hypomobility. Pt. would benefit from PT To address his ROM loss and postural awareness/strengthening. Rehabilitation Potential: Excellent Anticipated Interventions Patient/Client Instruction: Educate patient on: Condition, Plan of Care, Risk Factors and Benefits of Fitness Program For the Purpose of:: To improve decision making, To facilitate caregiver knowledge, To improve self management, To prevent re-injury and To improve ability to perform tasks related to life management Therapeutic Exercise to Include: Strength training, Flexibilty training, Passive ROM, Active ROM, Angela Exercises and Scapular Strength/Stabilization For the Purpose of:: To decrease pain, To decrease swelling/inflammation, To increase ROM, To improve nutrient delivery to tissue, To increase oxygenation perfusion, To improve muscle performance and motor function, To improve ability to perform ADL's, To increase tolerance to activity/condition/position, To improve health of tissue, To decrease soft tissue restriction and To increase flexibility/ROM Manual Therapy Techniques to Include: Mobilization, Functional dry needling and Soft tissue mobilization Comment: manual traction For the Purpose of:: To decrease pain, To decrease swelling/inflammation, To increase ROM, To improve nutrient delivery to tissue, To increase oxygenation perfusion, To improve muscle performance and motor function, To decrease soft tissue restriction and To increase flexibility/ROM IF ES: Yes Cryotherapy (ice pack, ice massage): Yes Thermo therapy (hot pack): Yes Intermittent cervical traction: Yes For the Purpose of:: To decrease pain, To decrease swelling/inflammation, To increase ROM, To improve nutrient delivery to tissue, To improve muscle performance and motor function and To improve ability to perform ADL's Text: Thank you for the opportunity to evaluate your patient. For Medicare and Medicare HMO plans, please review the plan of care and approve it. It will need to be FAXED BACK to us at [phone] for Medicare purposes. For Medicare only, by signing this I certify the plan of care. Please let me know if there are questions or concerns regarding this plan of care. Physician Signature: Date:
== END 2024-12-06 19:00 | disposition home or self-care (01) ==
LOC: PT 15:55
PROVIDERS: PCP Family Medicine; Referring Provider Family Medicine; Visit Provider Family Medicine
DX: M54.2 Cervicalgia (principal); M25.512 Pain in left shoulder
CPT/HCPCS: 97161